=== PATIENT | male | born 1940 | race Asian ===

== ENCOUNTER 2018-03-13 01:14 | Inpatient (IN) | payer BC, OTHER ==
[2018-03-13 01:45] VITALS: BMI 30.9
--- NOTE | 2018-03-13 01:50 | PDOC ---
Attending Attestation - HPI HPI: 03/13/18 02:04 The patient is a 77 year old male with past medical history of HTN, diabetes, gallstones and hyperlipidemia presents to the emergency department with abd pain and chest pain. The patient reports earlier today he and his family broke the fast, after eating the patient experienced an episode of nonbloody nonbilious vomiting, states he vomited all the food he ate, followed by the manifestation of the chest pain. Denies any SOB or wheezing. Denies numbness, tingling, weakness or loss of sensation. Denies any diarrhea or constipation. Denies any dysuria, hematuria, frequency or urgency to urinate. Allergies: NKDA Social history: Patient denies Surgical history: Patient denies PCP: None reported - Medical Decision Making 03/13/18 02:04 Documentation prepared by Mahnaz Rousseau, acting as medical liaison for Marcos Humphries DO <Mahnaz Rousseau - Last Filed: 03/13/18 02:04> - Resident Resident Name: Samir Islas - ED Attending Attestation I have performed the following: I have examined & evaluated the patient, The case was reviewed & discussed with the resident, I agree w/resident's findings & plan, Exceptions are as noted - Physicial Exam PE: 03/13/18 04:13 Physical Exam General Appearance: Yes: Appropriately Dressed. No: Apparent Distress, Intoxicated HEENT: positive: EOMI, AKIRA, Normal ENT Inspection, Normal Voice, TMs Normal, Pharynx Normal. negative: Pale Conjunctivae, Photophobia, Scleral Icterus (R), Scleral Icterus (L) Neck: positive: Trachea midline, Normal Thyroid, Supple. negative: Tender, Rigid, Carotid bruit, Stridor, Lymphadenopathy (R), Lymphadenopathy (L), Thyromegaly Respiratory/Chest: positive: Lungs Clear, Normal Breath Sounds. negative: Chest Tender, Respiratory Distress, Accessory Muscle Use, Labored Respiration, RES, Crackles, Rales, Rhonchi, Stridor, Wheezing, Dullness Cardiovascular: positive: Regular Rhythm, Regular Rate, S1, S2. negative: Edema , JVD, Murmur, Bradycardia, Tachycardia Vascular Pulses: Dorsalis-Pedis (R): 2+, Doralis-Pedis (L): 2+ Gastrointestinal/Abdominal: positive: Normal Bowel Sounds, Flat, Soft. RUQ tenderness negative: Organomegaly, Pulsatile Mass, Increased Bowel Sounds, Decreased BS, Distended, Guarding, Rebound, Hernia, Hepatomegaly, Spleenomegaly Lymphatic: negative: Adenopathy, Tenderness Musculoskeletal: positive: Normal Inspection. negative: CVA Tenderness, Decreased Range of Motion Extremity: positive: Normal Capillary Refill, Normal Inspection, Normal Range of Motion, Pelvis Stable. negative: Tender, Pedal Edema, Swelling, Erythema Integumentary: positive: Normal Color, Dry, Warm. negative: Cyanotic, Erythema , Jaundice, Rash Neurologic: positive: ladies' locker room attendant II-XII NML intact, Fully Oriented, Alert, Normal Mood/ Affect, Motor Strength 5/5. negative: EOM Palsy, Facial Droop, Sensory Deficit - Medical Decision Making 03/13/18 19:31 Pt admitted to ICU. <Marcos Humphries - Last Filed: 03/13/18 19:31>
[2018-03-13] MEDS ORDERED: HEMOQUE TEST 1 EACH EACH ONE (02:03)
[2018-03-13 02:23] LABS: BASO % 0.2 % (0-2.0); EOS % 0.2 % (0-4.5); HEMATOCRIT 44.1 % (35.4-49); HEMOGLOBIN 14.6 GM/dL (11.7-16.9); LYMPH % 5.9 % (8-40); MCH 29.1 pg (25.7-33.7); MEAN CELL VOLUME 88.2 fl (80-96); MONO % 1.8 % (3.8-10.2); NEUT % 91.9 % (42.8-82.8); RDW 13.8 % (11.9-15.9); WHITE BLOOD COUNT 13.2 K/mm3 (4.0-10.0)
--- NOTE | 2018-03-13 02:46 | PDOC ---
History of Present Illness - General Chief Complaint: Tremors Stated Complaint: DIFFICULTY BREATHING,VOMITING Time Seen by Provider: 03/13/18 01:40 History Source: Patient Exam Limitations: No Limitations - History of Present Illness Initial Comments: 03/13/18 02:43 The patient is a 77M with a PMH of HTN, HLD, and DM who presents to the ER with complaints of chest pain and abdominal pain. The patient is with his son and , with his son providing most of the history. The son states that the patient "broke fast" and had a meal with the rest of the family. After he ate his meal, he felt nauseated and vomited NBNB. He went to lay down and then felt RUQ abdominal pain and CP. The CP is retrosternal, described as pressure, and does not radiate anywhere without any exacerbating or alleviating factors. The son states that the patient has had this abdominal pain in the past and was diagnosed with gallstones but deferred seeing a general surgeon because he felt better. The patient denies any fever, chills, but does complain of a tremor throughout his body. Past History - Past Medical History Allergies/Adverse Reactions: Allergies Allergy/AdvReac Type Severity Reaction Status Date / Time No Known Allergies Allergy Verified 03/13/18 01:33 Home Medications: Ambulatory Orders Atorvastatin Calcium [Lipitor] 20 mg PO DAILY 03/13/18 Hydrochlorothiazide [Hctz -] 12.5 mg PO DAILY 03/13/18 Losartan Potassium [Cozaar -] 25 mg PO DAILY 03/13/18 Olanzapine [Zyprexa -] 5 mg PO DAILY 03/13/18 Sitagliptin Phos/Metformin HCl [Janumet 50-1,000 mg Tablet] 1 each PO BID Tamsulosin HCl [Flomax] 0.4 mg PO DAILY 03/13/18 COPD: No Diabetes: Yes (2) Disorders: Yes (prostate) HTN: Yes Hypercholesterolemia: Yes - Suicide/Smoking/Psychosocial Hx Smoking History: Unknown if ever smoked Review of Systems - Review of Systems Able to Perform ROS?: Yes Comments:: 03/13/18 03:37 GENERAL/CONSTITUTIONAL: No fever or chills. No weakness. HEAD, EYES, EARS, NOSE AND THROAT: No change in vision. No ear pain or discharge. No sore throat. CARDIOVASCULAR: Positive for chest pressure. No chest pain, palpitations, or lightheadedness. RESPIRATORY: No cough, wheezing, shortness of breath, or hemoptysis. GASTROINTESTINAL: Positive for vomiting and abdominal pain. No nausea, diarrhea , or constipation. GENITOURINARY: No dysuria, frequency, hematuria, or change in urination. MUSCULOSKELETAL: No joint or muscle swelling or pain. No neck or back pain. SKIN: No rash or lesions. NEUROLOGIC: No headache, numbness, tingling, weakness, loss of consciousness, or change in strength/sensation. ENDOCRINE: No increased thirst. No abnormal weight change. HEMATOLOGIC/LYMPHATIC: No anemia, easy bleeding, or history of blood clots. ALLERGIC/IMMUNOLOGIC: No hives or skin allergy. Is the patient limited [place] proficient: No *Physical Exam - Vital Signs Last Vital Signs Temp Pulse Resp BP Pulse Ox 98 F 104 H 30 H 130/80 91 L 03/13/18 01:33 03/13/18 01:33 03/13/18 01:33 03/13/18 01:33 03/13/18 01:33 - Physical Exam Comments: 03/13/18 05:49 GENERAL: Well developed, well nourished. Awake and alert. No acute distress. HEENT: Normocephalic, atraumatic. Hearing grossly normal. Moist mucous membranes. PERRLA, EOMI. No conjunctival pallor. Sclera are non-icteric. NECK: Supple. Full ROM. CARDIOVASCULAR: Regular rate and rhythm. No murmurs, rubs, or gallops. PULMONARY: No evidence of respiratory distress. Lungs clear to auscultation bilaterally. No wheezing, rales or rhonchi. ABDOMINAL: Soft. Non-tender. Non-distended. No rebound or guarding. Negative mcmahon's sign. GENITOURINARY: No CVA tenderness bilaterally. MUSCULOSKELETAL: Normal range of motion at all joints. No bony deformities or tenderness. EXTREMITIES: No cyanosis. No clubbing. No edema. No calf tenderness or swelling. SKIN: Warm and dry. Normal capillary refill. No rashes. No jaundice. NEUROLOGICAL: Alert, awake, appropriate. Cranial nerves 2-12 intact. Normal speech. Gait is normal without ataxia. Heart Score/ECG Review #1 General ECG Interpretation: Sinus Rhythm, Normal Rate, Normal Intervals, No acute ischemic changes Compared to previous ECG there are: Previous ECG unavail 03/13/18 05:50 Sinus tach Artifact present from pt tremor No ABIMAEL or STD No evidence of acute ischemic changes Vent rate 104 NJ 152 QRS 78 QTc 452 ED Treatment Course - LABORATORY CBC & Chemistry Diagram: 03/13/18 02:14 03/13/18 02:14 - ADDITIONAL ORDERS Additional order review: Laboratory Results 03/13/18 02:10 POC Glucometer [id number] 03/13/18 03/13/18 02:14 02:10 RBC 5.00 MCV 88.2 MCHC 33.0 RDW 13.8 Neutrophils % 91.9 H Lymphocytes % 5.9 L Monocytes % 1.8 L Eosinophils % 0.2 Basophils % 0.2 POC Glucometer [id number] - RADIOLOGY Radiology Studies Ordered: Category Date Time Status CHEST X-RAY PORTABLE* [RAD] Stat Radiology 03/13/18 01:47 Taken Medical Decision Making - Medical Decision Making 03/13/18 05:50 The patient is a 77M with a PMH of HTN, HLD, and DM who presents to the ER after having a vomiting episode and complaining of abdominal pain and CP. Will r /o ACS with EKG and 2 troponins. CMP reveals elevated LFT's and alk phos likely indicating a choledocholithiasis. Will place pt for CTAP to r/o other acute process. Pain controlled with morphine. Given ceftriaxone for abx. WBC shows 13.0. Possible hepatobiliary pathology as discussed above. Pending CTAP reading. 03/13/18 05:53 CTAP Read: FINDINGS: The scan is quite limited due to patient motion. No obvious choledocholithiasis. However, because of motion the biliary tree is difficult to evaluate. MRCP would be most helpful for evaluation of choledocholithiasis. There is apparent thickening of the gallbladder storey but there is so much motion I cannot determine if it is a real finding or artifact. This can be evaluated with ultrasound. Hiatal hernia. No bowel obstruction. No bowel inflammation. Normal appendix. Fatty liver. Normal spleen. Normal pancreas. Normal adrenal glands. No urinary tract obstruction. Osseous structures are intact Pt is requesting to leave ED. I have instructed the patient to stay for abx and for imaging. Will reassess. 03/13/18 06:17 Pt is stating that his pain is better but remains tachycardic, tachypneic, and hypoxic (possible baseline d/t hx of COPD). Will admit for obs w/ GI consult. U/S RUQ order placed. 03/13/18 06:47 I have endorsed the pt to Dr. Queen for obs admission. *DC/Admit/Observation/Transfer Diagnosis at time of Disposition: Choledocholithiasis - Discharge Dispostion Condition at time of disposition: Stable Decision to Admit order: Yes - Referrals - Patient Instructions - Post Discharge Activity
[2018-03-13 02:47] LABS: ALBUMIN 3.8 g/dl (3.4-5.0); ALK PHOS 147 U/L (45-117); ANION GAP 13 (8-16); BILIRUBIN,TOTAL 1.3 mg/dL (0.2-1.0); BLOOD UREA NITROGEN 15 mg/dL (7-18); CALCIUM 9.6 mg/dL (8.5-10.1); CHLORIDE 104 mmol/L (98-107); CO2 24 mmol/L (21-32); CREATININE 1.3 mg/dL (0.7-1.3); GLUCOSE,RANDOM 156 mg/dL (74-106); SGPT/ALT 142 U/L (12-78); SODIUM 141 mmol/L (136-145); TOT PROT 8.1 g/dl (6.4-8.2)
[2018-03-13 02:52] LABS: LIPASE 301 U/L (73-393)
[2018-03-13 02:53] LABS: POTASSIUM 4.6 mmol/L (3.5-5.1); SGOT/AST 227 U/L (15-37)
[2018-03-13 03:02] LABS: ACETONE SERUM NEGATIVE (NEGATIVE)
[2018-03-13] MEDS ORDERED: CEFTRIAXONE 1,000 MG in DEXTROSE 5%-WATER - 50 ML IVPB ONE (03:15)
[2018-03-13] MEDS ORDERED: SODIUM CHLORIDE 0.9% 1000 ML INFUS.BAG IV ONE (03:22)
[2018-03-13] MEDS ORDERED: morphine CARPU-JECT 4 MG/1 ML DISP.SYRIN IVPUSH ONE (03:22)
[2018-03-13] MEDS ORDERED: morphine SULFATE 4 MG/ML VIAL ONE (03:47)
[2018-03-13] MEDS ORDERED: CEFTRIAXONE 1 GM/50 ML BAG ONE (03:48)
[2018-03-13 03:50] LABS: MEAN PLT VOLUME 8.7 fl (7.5-11.1); PLATELET COUNT 182 K/MM3 (134-434)
[2018-03-13 03:51] LABS: PLATELET ESTIMATE ADEQUATE
[2018-03-13 05:08] LABS: URINE APPEARANCE CLEAR; URINE BILIRUBIN NEGATIVE (<2.0 mg/dL); URINE BLOOD NEGATIVE (NEGATIVE); URINE GLUCOSE (UA) NEGATIVE (NEGATIVE); URINE KETONE NEGATIVE (NEGATIVE); URINE LEUK ESTERASE NEGATIVE (NEGATIVE); URINE NITRITE NEGATIVE (NEGATIVE); URINE PROTEIN NEGATIVE (NEGATIVE); URINE UROBILINOGEN 4.0 E.U/dl mg/dL (0.2-1.0)
[2018-03-13 05:15] LABS: URINE COLOR YELLOW
[2018-03-13] MEDS ORDERED: IBUPROFEN 800 MG/8 ML IJ IVPB ONE ×4 (07:19→23:00)
[2018-03-13] MEDS: SODIUM CHLORIDE 1,000 ML IV SCH ×3 (07:30→18:12)
[2018-03-13 08:16] LABS: HEMATOCRIT 39.4 % (35.4-49); HEMOGLOBIN 13.3 GM/dL (11.7-16.9); MCH 29.4 pg (25.7-33.7); MCHC 33.8 g/dl (32.0-35.9); MEAN CELL VOLUME 86.9 fl (80-96); MEAN PLT VOLUME 8.5 fl (7.5-11.1); PLATELET COUNT 141 K/MM3 (134-434); RBC 4.54 M/mm3 (4.00-5.60); RDW 14.1 % (11.9-15.9); WHITE BLOOD COUNT 12.4 K/mm3 (4.0-10.0)
--- NOTE | 2018-03-13 08:20 | HP ---
CHIEF COMPLAINT:Abdominal and chest pain PCP:edwin Javier HISTORY OF PRESENT ILLNESS: 77M PMH listed below who presents to the ER with a chief complaint of chest pain and abdominal pain. The patient is belarusian speaking and is from [facility]. Most of the history was taken from the son. The patient has been fasting for and last night after the sun went down he started to eat with his family. After eating he didnt feel well and he decided to lay down. After laying down he felt very nauseated and eventually had and episode of NB/NB vomiting. The vomitus contained undigested food. He then started to experience abdominal pain whcih started to radiate to his lower chest. He did describe a pressure like pain retrosternally as well.The chest pain is currently gone but there weren't any exacerbating or alleviating factors. It did not radiate to his arm or jaw. Per the son the patient has had gallstones for a long time and he has had this abdominal pain in the past. He did not a general surgeon because he felt better. The patient initially denies any fevers or chills but during the interview he started getting very hot. He complains of chills. Patient is tachypenic during the interview and his son states that sometimes he breathes very fast to catch his breath. Per the he has been having exertional dyspnea that is gradually getting worse. The patient and his family are unsure why he is on plavix. He denies ever having a stress test or cardiac catheterization. The son thinks the patient may have had a "small heart attack" in the past. He denies history of stroke or TIA. Per son and patient has had this episode twice before and one of the times the patient developed jaundice. ER course was notable for: (1)Labs CT scan CXR (2)Pain control ABx Antiemetics (3)IVF Recent Travel:Denies. Patient is from [facility] PAST MEDICAL HISTORY:HTN, HLD, DM, Depression, BPH, possible CAD with IA in the past PAST SURGICAL HISTORY:Denies Social History: Smoking:Quit 1 year ago. Smoked for over 20 years Alcohol:Denies Drugs: Denies Family History: Gallstones Allergies No Known Allergies Allergy (Verified 03/13/18 01:33) HOME MEDICATIONS: Home Medications Medication Instructions Recorded Atorvastatin Calcium [Lipitor] 20 mg PO DAILY 03/13/18 Hydrochlorothiazide [Hctz -] 12.5 mg PO DAILY 03/13/18 Losartan Potassium [Cozaar -] 25 mg PO DAILY 03/13/18 Olanzapine [Zyprexa -] 5 mg PO DAILY 03/13/18 Sitagliptin Phos/Metformin HCl 1 each PO BID 03/13/18 [Janumet 50-1,000 mg Tablet] Tamsulosin HCl [Flomax] 0.4 mg PO DAILY 03/13/18 REVIEW OF SYSTEMS CONSTITUTIONAL: Absent: generalized weakness, malaise, loss of appetite, weight change Present : fever, chills, diaphoresis HEENT: Absent: rhinorrhea, nasal congestion, throat pain, throat swelling, difficulty swallowing, mouth swelling, ear pain, eye pain, visual changes CARDIOVASCULAR: Absent:syncope, palpitations, irregular heart rate, lightheadedness, peripheral edema Present: chest pain RESPIRATORY: Absent: cough, orthopnea, wheezing, stridor, hemoptysis Present:shortness of breath, dyspnea with exertion GASTROINTESTINAL: Absent: abdominal distension, diarrhea, constipation, melena, hematochezia Present: abdominal pain, nausea, vomiting GENITOURINARY: Absent: dysuria, frequency, urgency, hesitancy, hematuria, flank pain, genital pain MUSCULOSKELETAL: Absent: myalgia, arthralgia, joint swelling, back pain, neck pain SKIN: Absent: rash, itching, pallor HEMATOLOGIC/IMMUNOLOGIC: Absent: easy bleeding, easy bruising, lymphadenopathy, frequent infections ENDOCRINE: Absent: unexplained weight gain, unexplained weight loss, heat intolerance, cold intolerance NEUROLOGIC: Absent: headache, focal weakness or paresthesias, dizziness, unsteady gait, seizure, mental status changes, bladder or bowel incontinence PSYCHIATRIC: Absent: anxiety, depression, suicidal or homicidal ideation, hallucinations. PHYSICAL EXAMINATION Vital Signs - 24 hr 03/13/18 03/13/18 03/13/18 01:33 06:54 07:24 Temperature 98 F 102.3 F H Pulse Rate 104 H Pulse Rate [ 117 H Left Radial] Respiratory 30 H 18 Rate Blood Pressure 130/80 Blood Pressure 119/67 [Left Arm] O2 Sat by Pulse 91 L 97 94 L Oximetry (%) GENERAL: Awake, alert, and fully oriented. Looks tired. Diaphoretic HEAD: Normal with no signs of trauma. EYES: Pupils equal, round and reactive to light, extraocular movements intact, sclera anicteric EARS, NOSE, THROAT:Dry mucous membranes. NECK: Supple LUNGS:Fine and faint crackles with wheezing at left base Otherwise clear on right HEART: Regular rate and rhythm, normal S1 and S2 without murmur, rub or gallop. ABDOMEN: Soft, mild tenderness to palpation diffusely. RUQ moderate amount of tenderness with a weak mcmahon's sign MUSCULOSKELETAL: Normal range of motion at all joints. No CVA tenderness. UPPER EXTREMITIES: 2+ pulses, warm, well-perfused. No peripheral edema. LOWER EXTREMITIES: 1+ DP pulse on right 2+DP pulse on left, warm, well- perfused. No calf tenderness. No peripheral edema. NEUROLOGICAL: Cranial nerves II-XII intact. Normal speech. gait not observed PSYCHIATRIC: Cooperative. Good eye contact. Appropriate mood and affect. SKIN: Hot and clammy Laboratory Results - last 24 hr 03/13/18 03/13/18 03/13/18 02:10 02:14 02:14 WBC 13.2 H RBC 5.00 Hgb 14.6 Hct 44.1 MCV 88.2 MCH 29.1 MCHC 33.0 RDW 13.8 Plt Count 182 MPV 8.7 Neutrophils % 91.9 H Lymphocytes % 5.9 L Monocytes % 1.8 L Eosinophils % 0.2 Basophils % 0.2 Platelet Estimate Adequate Platelet Comment No clumping noted Sodium Potassium Chloride Carbon Dioxide Anion Gap BUN Creatinine Creat Clearance w eGFR POC Glucometer [id number] Random Glucose Calcium Total Bilirubin AST ALT Alkaline Phosphatase Creatine Kinase 73 Troponin I < 0.02 B-Natriuretic Peptide Total Protein Albumin Lipase Urine Color Urine Appearance Urine pH Ur Specific [place] Urine Protein Urine Glucose (UA) Urine Ketones Urine Blood Urine Nitrite Urine Bilirubin Urine Urobilinogen Ur Leukocyte Esterase Acetone, Qual Negative 03/13/18 03/13/18 03/13/18 02:14 02:14 05:01 WBC RBC Hgb Hct MCV MCH MCHC RDW Plt Count MPV Neutrophils % Lymphocytes % Monocytes % Eosinophils % Basophils % Platelet Estimate Platelet Comment Sodium 141 Potassium 4.6 Chloride 104 Carbon Dioxide 24 Anion Gap 13 BUN 15 Creatinine 1.3 Creat Clearance w eGFR 53.39 POC Glucometer Random Glucose 156 H Calcium 9.6 Total Bilirubin 1.3 H AST 227 H ALT 142 H Alkaline Phosphatase 147 H Creatine Kinase Troponin I B-Natriuretic Peptide 81.37 Total Protein 8.1 Albumin 3.8 Lipase 301 Urine Color Yellow Urine Appearance Clear Urine pH 5.0 Ur Specific [place] 1.019 Urine Protein Negative Urine Glucose (UA) Negative Urine Ketones Negative Urine Blood Negative Urine Nitrite Negative Urine Bilirubin Negative Urine Urobilinogen 4.0 e.u/dl Ur Leukocyte Esterase Negative Acetone, Qual EKG: NSR with a lot of motion artifact will need to repeat CTAP: unable to make a definitive diagnosis due to a lot of motion CXR: large heart no active acute process appreciated ASSESSMENT/PLAN: 77M with multiple medical problems including gallstones presents to the ED with nausea, vomiting, and RUQ abdominal pain for one day, found to have elevated LFTs. Patient is now in severe sepsis with concern for ascending cholangitis. Severe sepsis secondary to ascending cholangitis/Choledocholithiasis/ Cholelithiasis: patient is rapidly progressing. When I initially saw the patient he was not febrile. He is now febrile to 102.4. The fever with his tachycardia elevated WBC count, and tachypnea with elevated LFTs and lactic acidosis puts him in severe sepsis. Admit patient to inpatient services Strict I/Os Bell if needed ECHO for cardiac function and to help guide resuscitation Ceftriaxone/Flagyl GI consult for evaluation and ERCP will order MRCP f/u ultrasound CTAP was not very conclusive due to a lot of motion artifact IVF for resuscitation NPO Replete electrolytes Trend LFTs Pain control Antiemetics Antipyretics Hyperbilirubinemia/Jaundice/transaminitis: See above No tylenol Atypical chest pain:likely radiation from abdomen but given unknown cardiac history anf patient being on plavix will repeat troponin and if negative will stop trending. Repeat EKG due to motion artifact Lactic acidosis:secondary to tissue hypoperfusion will give NS fluid boluses and repeat in 2 hours DM: Stop Janumet Fingersticks for BGM q6h while NPO ISS q6h HTN: Hold antihypertensives for now as there is a concern for an impending shock state. on home patient is on HCTZ 12.5mg daily and Cozaar 25mg po daily Possible history of CAD: Patient and his family are unsure about his cardiac history or why the patient is on plavix. Per son patient was on all his meds from [facility] and when his father came to the [facility] his doctor just continued everything. They state theat he never had a stress test or cardiac catheterization but they are not completely sure. Will need for follow up with PCP Hold for now pending possible ERCP/surgical intervention HLD: Hold lipitor 20mg po HS due to elevated LFTs BPH: continue flomax Depression: continue Zyprexa FEN: Bolus NS and then 100ml/hr hypophosphatemia and hypomagnesemia: will replete with IV electrolytes NPO PPx: SCDs/HSQ Protonix PT consult as patient is deconditioning Case discussed with Attending Dr. Leon Visit type - Emergency Visit Emergency Visit: Yes ED Registration Date: 03/13/18 Care time: The patient presented to the Emergency Department on the above date and was hospitalized for further evaluation of their emergent condition. - New Patient This patient is new to me today: Yes Date on this admission: 03/13/18 - Critical Care Critical Care patient: No Hospitalist Screening - Colonoscopy Questionnaire Colonoscopy Questionnaire: Colonoscopy Questionnaire - Patient: 50 - 75 years old and never had a screening colonoscopy: Yes History of colon or rectal polyps, or CA: No History of IBD, Crohn's disease or UC: No History of abdominal radiation therapy as a child: No - Relative: 1 with colon or rectal CA, or polyps at age 60 or younger: No Colon or rectal CA diagnosed at age 45 or younger: No Multiple relatives with colon or rectal CA: No (Patient is 77 and refused colonoscopy in the past) - Outcome: Screening Result: Positive Screen
[2018-03-13] MEDS ORDERED: ONDANSETRON 4 MG/2 ML VIAL IVPB PRN ×2 (08:38→17:28)
[2018-03-13 08:48] LABS: ALBUMIN 3.3 g/dl (3.4-5.0); ALK PHOS 180 U/L (45-117); BILIRUBIN,TOTAL 2.1 mg/dL (0.2-1.0); SGPT/ALT 319 U/L (12-78); TOT PROT 7.6 g/dl (6.4-8.2)
[2018-03-13 08:51] LABS: MAGNESIUM 1.2 mg/dL (1.8-2.4)
[2018-03-13 08:52] LABS: BILIRUBIN,DIRECT 0.8 mg/dL (0.0-0.2); SGOT/AST 413 U/L (15-37)
[2018-03-13] MEDS ORDERED: MAGNESIUM SULF 50% (8.12 MEQ/2 ML-1 GM VIAL) IVPB SCH (09:00)
[2018-03-13] MEDS ORDERED: SODIUM CHLORIDE 1,000 ML IV STA ×2 (09:28→14:41)
[2018-03-13] MEDS ORDERED: morphine SULFATE 4 MG/ML VIAL IVPUSH PRN ×2 (09:45→17:28)
[2018-03-13] MEDS ORDERED: SODIUM PHOSPHATE - 30 MM in SODIUM CHLORIDE 500 ML IVPB ONE (10:00)
[2018-03-13] MEDS ORDERED: OLANZapine 5 MG TABLET PO SCH (10:00)
[2018-03-13] MEDS: HEPARIN NA (PORCINE) 5,000 UNITS/ML 1ML VIAL SQ SCH ×3 (10:28→23:01)
[2018-03-13] MEDS: MAGNESIUM SULFATE IN WATER 2 GM/50 ML IVPB IVPB SCH ×2 (11:26→11:37)
[2018-03-13] MEDS: INSULIN SLIDING SCALE (NOVOLOG) 1 VIAL SQ SCH ×3 (11:29→18:11)
--- NOTE | 2018-03-13 11:56 | EKG ---
Test Reason : Blood Pressure : / mmHG Vent. Rate : 104 BPM Atrial Rate : 104 BPM P-R Int : 152 ms QRS Dur : 078 ms QT Int : 344 ms P-R-T Axes : 053 019 019 degrees QTc Int : 452 ms POOR DATA QUALITY, INTERPRETATION MAY BE ADVERSELY AFFECTED SINUS TACHYCARDIA NONSPECIFIC ST ABNORMALITY ABNORMAL ECG NO PREVIOUS ECGS AVAILABLE Confirmed by YESSI GOODWIN MD ([id number]) on 03/13/2018 11:56:10 AM Referred By: Confirmed By:YESSI GOODWIN MD
--- NOTE | 2018-03-13 12:10 | CON.GI ---
Consult Consult Specialty:: GI Reason for Consultation:: abdominal pain, abnormal liver chemistries - History of Present Illness History of Present Illness: chart reviewed. Events noted. As per initial intake: The patient is a 77M with a PMH of HTN, HLD, and DM who presents to the ER with complaints of chest pain and abdominal pain. The patient is with his son and , with his son providing most of the history. The son states that the patient "broke fast" and had a meal with the rest of the family. After he ate his meal, he felt nauseated and vomited NBNB. He went to lay down and then felt RUQ abdominal pain and CP. The CP is retrosternal, described as pressure, and does not radiate anywhere without any exacerbating or alleviating factors. The son states that the patient has had this abdominal pain in the past and was diagnosed with gallstones but deferred seeing a general surgeon because he felt better. The patient denies any fever, chills, but does complain of a tremor throughout his body. The patient was interviewed with help of Romanian-speaking attending physician. Not in distress. Pain-free. Reports history as above. the pain is epigastric, nonradiating, associated with nausea and vomiting, completely resolved at this time, similar to the pain he experienced in the past at the time of gallstone diagnosis. Denies dysphagia, odynophagia, melena, hematochezia, hematemesis. T-max 102. Tachycardic, normotensive. Blood work revealed cholestasis with hepatitis, mild leukocytosis, elevated lactic acid. Nontender abdomen on exam. Negative Dominguez's. Anicteric sclera. No jaundice. Awake, alert. Takes Janumet, Plavix, atorvastatin, Olanzapine. - History Source History Provided By: Patient, Medical Record, Caregiver Limitations to Obtaining History: Language Barrier - Smoking History Smoking history: Unknown if ever smoked Home Medications - Allergies Allergies/Adverse Reactions: Allergies Allergy/AdvReac Type Severity Reaction Status Date / Time No Known Allergies Allergy Verified 03/13/18 01:33 - Home Medications Home Medications: Ambulatory Orders Atorvastatin Calcium [Lipitor] 20 mg PO DAILY 03/13/18 Clopidogrel Bisulfate [Plavix] 75 mg PO DAILY 03/13/18 Hydrochlorothiazide [Hctz -] 12.5 mg PO DAILY 03/13/18 Losartan Potassium [Cozaar -] 25 mg PO DAILY 03/13/18 Olanzapine [Zyprexa -] 5 mg PO DAILY 03/13/18 Sitagliptin Phos/Metformin HCl [Janumet 50-1,000 mg Tablet] 1 each PO BID Tamsulosin HCl [Flomax] 0.4 mg PO DAILY 03/13/18 Family Disease History - Family Disease History Family History: Unremarkable Review of Systems Findings/Remarks: As per H&P and HPI Physical Exam-GI Vital Signs: Vital Signs Temperature 98.1 F 03/13/18 08:24 Pulse Rate 105 H 03/13/18 08:24 Respiratory Rate 18 03/13/18 08:24 Blood Pressure 118/76 03/13/18 08:24 O2 Sat by Pulse Oximetry (%) 96 03/13/18 08:24 Constitutional: Yes: Well Nourished, No Distress Eyes: No: Sclera Icterus HENT: Yes: Atraumatic, Normocephalic Neck: Yes: Supple, Trachea Midline Cardiovascular: Yes: Regular Rate and Rhythm, Tachycardia Respiratory: Yes: Regular Gastrointestinal Inspection: No: Distention ...Palpate: Yes: Soft. No: Firm/Rigid, Guarding, Tenderness Neurological: Yes: Alert Labs: CBC, BMP 03/13/18 07:50 03/13/18 02:14 Laboratory Last Values WBC 12.4 K/mm3 (4.0-10.0) H 03/13/18 07:50 RBC 4.54 M/mm3 (4.00-5.60) 03/13/18 07:50 Hgb 13.3 GM/dL (11.7-16.9) 03/13/18 07:50 Hct 39.4 % (35.4-49) 03/13/18 07:50 MCV 86.9 fl (80-96) 03/13/18 07:50 MCH 29.4 pg (25.7-33.7) 03/13/18 07:50 MCHC 33.8 g/dl (32.0-35.9) 03/13/18 07:50 RDW 14.1 % (11.9-15.9) 03/13/18 07:50 Plt Count 141 K/MM3 (134-434) D 03/13/18 07:50 MPV 8.5 fl (7.5-11.1) 03/13/18 07:50 Neutrophils % 91.9 % (42.8-82.8) H 03/13/18 02:14 Lymphocytes % 5.9 % (8-40) L 03/13/18 02:14 Monocytes % 1.8 % (3.8-10.2) L 03/13/18 02:14 Eosinophils % 0.2 % (0-4.5) 03/13/18 02:14 Basophils % 0.2 % (0-2.0) 03/13/18 02:14 Platelet Estimate Adequate 03/13/18 02:14 Platelet Comment No clumping noted 03/13/18 02:14 Sodium 141 mmol/L (136-145) 03/13/18 02:14 Potassium 4.6 mmol/L (3.5-5.1) 03/13/18 02:14 Chloride 104 mmol/L (98-107) 03/13/18 02:14 Carbon Dioxide 24 mmol/L (21-32) 03/13/18 02:14 Anion Gap 13 (8-16) 03/13/18 02:14 BUN 15 mg/dL (7-18) 03/13/18 02:14 Creatinine 1.3 mg/dL (0.7-1.3) 03/13/18 02:14 Creat Clearance w eGFR 53.39 (>60) 03/13/18 02:14 POC Glucometer 155.87708 UNITS (80-120) 03/13/18 02:10 Random Glucose 156 mg/dL (74-106) H 03/13/18 02:14 Lactic Acid 2.8 mmol/L (0.0-2.0) H* 03/13/18 09:50 Calcium 9.6 mg/dL (8.5-10.1) 03/13/18 02:14 Phosphorus 2.0 mg/dL (2.5-4.9) L 03/13/18 07:50 Magnesium 1.2 mg/dL (1.8-2.4) L 03/13/18 07:50 Total Bilirubin 2.1 mg/dL (0.2-1.0) H D 03/13/18 07:50 Direct Bilirubin 0.8 mg/dL (0.0-0.2) H 03/13/18 07:50 AST 413 U/L (15-37) H D 03/13/18 07:50 ALT 319 U/L (12-78) H D 03/13/18 07:50 Alkaline Phosphatase 180 U/L (45-117) H D 03/13/18 07:50 Creatine Kinase 64 IU/L (39-308) 03/13/18 07:50 Troponin I < 0.02 ng/ml (0.00-0.05) 03/13/18 07:50 B-Natriuretic Peptide 81.37 pg/ml (5-450) 03/13/18 02:14 Total Protein 7.6 g/dl (6.4-8.2) 03/13/18 07:50 Albumin 3.3 g/dl (3.4-5.0) L 03/13/18 07:50 Lipase 301 U/L (73-393) 03/13/18 02:14 Urine Color Yellow 03/13/18 05:01 Urine Appearance Clear 03/13/18 05:01 Urine pH 5.0 (5.0-8.0) 03/13/18 05:01 Ur Specific [place] 1.019 (1.001-1.035) 03/13/18 05:01 Urine Protein Negative (NEGATIVE) 03/13/18 05:01 Urine Glucose (UA) Negative (NEGATIVE) 03/13/18 05:01 Urine Ketones Negative (NEGATIVE) 03/13/18 05:01 Urine Blood Negative (NEGATIVE) 03/13/18 05:01 Urine Nitrite Negative (NEGATIVE) 03/13/18 05:01 Urine Bilirubin Negative (<2.0 mg/dL) 03/13/18 05:01 Urine Urobilinogen 4.0 e.u/dl mg/dL (0.2-1.0) 03/13/18 05:01 Ur Leukocyte Esterase Negative (NEGATIVE) 03/13/18 05:01 Acetone, Qual Negative (NEGATIVE) 03/13/18 02:14 Imaging - Results Cat Scan: Report Reviewed ( without. Limited study.) Problem List - Problems (1) Cholestasis Code(s): K83.1 - OBSTRUCTION OF BILE DUCT (2) Hepatitis Code(s): K75.9 - INFLAMMATORY LIVER DISEASE, UNSPECIFIED (3) Abdominal pain Code(s): R10.9 - UNSPECIFIED ABDOMINAL PAIN Assessment/Plan A 77-year-old male, diabetic, with abdominal pain, cholestasis, hepatitis, leukocytosis, fever and history of gallstones. Rule out cholangitis, choledocholithiasis, cholecystitis. Rule out underlying viral etiology and peptic ulcer disease. Agree with antibiotics with biliary coverage, MRCP, IV fluids and bowel rest. Antiemetics when necessary. Hold Plavix. Close monitoring for worsening condition. Consider ICU monitoring. ERCP, EGD as per findings on imaging.
[2018-03-13] MEDS ORDERED: PANTOPRAZOLE 40 MG TABLET (FP) PO SCH (12:30)
--- NOTE | 2018-03-13 15:38 | PN ---
Teaching Attending Note Name of Resident: Pop Zavaleta ATTENDING PHYSICIAN STATEMENT I saw and evaluated the patient. I reviewed the resident's note and discussed the case with the resident. I agree with the resident's findings and plan as documented. SUBJECTIVE: Patient is a 77 year old man with past history of HTN, DM, Hyperlipidemia, BPH, ?CAD, and depression who presents with chief complaint of right upper quadrant abdominal pain, vomiting and chest discomfort that started within the past 24 hours. Patient had a similar episode of RUQ pain about 1 year ago and was told he had gall bladder disease. In the ER he was noted to be febrile, tachycardic, normotensive and ill looking with labs remarkable for leukocytosis, lactic acidosis, hypomagnesemia and hypophosphatemia. OBJECTIVE: Last Vital Signs Temp Pulse Resp BP Pulse Ox 97.9 F 73 20 107/61 96 03/13/18 14:00 03/13/18 14:00 03/13/18 14:00 03/13/18 14:00 03/13/18 08:24 Patient is ill-looking but not in acute pain after he got analgesics. HEENT: Tinge of jaundice. PERRLA Neck: Supple, no adenopathy Chest: Clear to auscultation and percussion Abdomen: Obese, soft and nontender. No gaurding or rebound. No HSM Ext: No peripheral edema Neuro: Alert. No gross focal deficits. Oriented to person and place. Current Medications Generic Name Dose Route Start Last Admin Trade Name Freq PRN Reason Stop Dose Admin Heparin Sodium (Porcine) 5,000 unit 03/13/18 09:00 03/13/18 13:51 Heparin - SQ 5,000 unit TID TITO Administration Sodium Chloride 1,000 mls @ 100 mls/hr 03/13/18 07:30 03/13/18 11:48 Normal Saline - IV 100 mls/hr ASDIR TITO Administration Ceftriaxone Sodium 1 gm/ 50 mls @ 100 mls/hr 03/13/18 22:00 Dextrose IVPB DAILY@2200 TITO Protocol Metronidazole 500 mg in 100 mls @ 100 mls/hr 03/13/18 10:00 03/13/18 11:45 Flagyl 500mg Premixed Ivpb - IVPB 100 mls/hr Q8H-IV TITO Administration Sodium Phosphate 30 mm/ Sodium 510 mls @ 62.5 mls/hr 03/13/18 10:00 03/13/18 12:30 Chloride IVPB 03/13/18 18:09 62.5 mls/hr ONCE ONE Administration Sodium Chloride 1,000 mls @ 1,000 mls/hr 03/13/18 14:41 03/13/18 15:10 Normal Saline - IV 03/13/18 15:40 1,000 mls/hr ASDIR STA Administration Insulin Aspart 1 vial 03/13/18 08:30 03/13/18 13:28 Novolog Vial Sliding Scale - SQ Not Given Q6HPO [facility] Protocol Morphine Sulfate 2 mg 03/13/18 09:45 Morphine Sulfate IVPUSH Q4H PRN PAIN LEVEL 4 - 6 Olanzapine 5 mg 03/13/18 10:00 03/13/18 11:38 Zyprexa - PO 5 mg DAILY TITO Administration Ondansetron HCl 4 mg 03/13/18 08:38 Zofran Injection IVPB Q6H PRN NAUSEA Pantoprazole Sodium 40 mg 03/13/18 12:30 03/13/18 13:51 Protonix - PO 40 mg DAILY TITO Administration Tamsulosin HCl 0.4 mg 03/14/18 10:00 Flomax - PO DAILY@0830 [facility] Home Medications Medication Instructions Recorded Atorvastatin Calcium [Lipitor] 20 mg PO DAILY 03/13/18 Clopidogrel Bisulfate [Plavix] 75 mg PO DAILY 03/13/18 Hydrochlorothiazide [Hctz -] 12.5 mg PO DAILY 03/13/18 Losartan Potassium [Cozaar -] 25 mg PO DAILY 03/13/18 Olanzapine [Zyprexa -] 5 mg PO DAILY 03/13/18 Sitagliptin Phos/Metformin HCl 1 each PO BID 03/13/18 [Janumet 50-1,000 mg Tablet] Tamsulosin HCl [Flomax] 0.4 mg PO DAILY 03/13/18 Abnormal Lab Results 03/13/18 03/13/18 03/13/18 02:14 02:14 07:50 WBC 13.2 H 12.4 H Neutrophils % 91.9 H Lymphocytes % 5.9 L Monocytes % 1.8 L Random Glucose 156 H Lactic Acid Phosphorus Magnesium Total Bilirubin 1.3 H Direct Bilirubin AST 227 H ALT 142 H Alkaline Phosphatase 147 H Albumin 03/13/18 03/13/18 03/13/18 07:50 07:50 07:50 WBC Neutrophils % Lymphocytes % Monocytes % Random Glucose Lactic Acid 4.3 H* Phosphorus 2.0 L Magnesium 1.2 L Total Bilirubin 2.1 H D Direct Bilirubin 0.8 H AST 413 H D ALT 319 H D Alkaline Phosphatase 180 H D Albumin 3.3 L 03/13/18 09:50 WBC Neutrophils % Lymphocytes % Monocytes % Random Glucose Lactic Acid 2.8 H* Phosphorus Magnesium Total Bilirubin Direct Bilirubin AST ALT Alkaline Phosphatase Albumin ASSESSMENT AND PLAN: 77 year old man with multiple comorbidities presenting with finding consistent with severe sepsis, most likely due to cholecystitis or cholangitis. Patient is being admitted as an inpatient because he will require fluid resuscitation and IV antibiotics and expected lengt of stay is more than two midnights. 1. Severe sepsis: Patient received bolus IV normal saline and is on IV Rocephin and IV Flagyl. Lactic acid level is trending down and he is being continued on IV NS at 100cc/hour. Will monitor lactic acid level. CT Scan as well sonogram showed dilated gall bladder, but no dilatation of common bile duct. Patient is being seen by the surgeon and the quality compliance consultant and an an MRCP is being done. 2. DM: Patient is now on sliding scale insulin coverage. 3. Nutrition: Currently NPO pending complete evaluation to determine if he needs urgent cholecystectomy. 4. Hypertension: Antihypertensive medications are currently on hold in view of the low normal BP and risk of hypotension. 5. Hyperlipidemia: Will continue his usual antilipid regimen. 6. ?CAD: Patient is on Plavix for unclear reasons. Will hold for now in case he needs surgey. 7. BPH: Will hold his flomax for now and continue to monitor voiding. 8. Low phosphate and low Magnesium: Etiology is unclear, but unlikely to be solely due to poor intake. Will continue to replace PO and IV 9. Depression: Will continue zyprexa 5 mg po q HS. 10.DVT prophylasix: Will use Heparin 5000u SQ tid and SCDs 11. Advance directives: Will clarify with family if patient is full code.
[2018-03-13 16:00] LABS: ANION GAP 14 (8-16); BLOOD UREA NITROGEN 16 mg/dL (7-18); CALCIUM 8.9 mg/dL (8.5-10.1); CHLORIDE 104 mmol/L (98-107); CO2 22 mmol/L (21-32); CREATININE 1.4 mg/dL (0.7-1.3); GLUCOSE,RANDOM 152 mg/dL (74-106); SODIUM 140 mmol/L (136-145)
[2018-03-13 16:01] LABS: POTASSIUM 4.9 mmol/L (3.5-5.1)
[2018-03-13 16:38] LABS: BASO % 0.2 % (0-2.0); EOS % 0.3 % (0-4.5); HEMATOCRIT 37.8 % (35.4-49); HEMOGLOBIN 12.5 GM/dL (11.7-16.9); LYMPH % 6.6 % (8-40); MCH 29.1 pg (25.7-33.7); MEAN CELL VOLUME 88.2 fl (80-96); MEAN PLT VOLUME 8.4 fl (7.5-11.1); MONO % 4.1 % (3.8-10.2); NEUT % 88.8 % (42.8-82.8); PLATELET COUNT 134 K/MM3 (134-434); RBC 4.29 M/mm3 (4.00-5.60); RDW 14.1 % (11.9-15.9); WHITE BLOOD COUNT 9.2 K/mm3 (4.0-10.0)
--- NOTE | 2018-03-13 16:49 | CONSULT ---
Consult Consult Specialty:: Surgery - History of Present Illness Chief Complaint: Abdominal pain History of Present Illness: 77 male presents for abdominal pain Found to be slightly jaundice with fever and elevated LFTs - History Source History Provided By: Patient, Family Member - Alcohol/Substance Use Hx Alcohol Use: No - Smoking History Smoking history: Unknown if ever smoked Have you smoked in the past 12 months: No Home Medications - Allergies Allergies/Adverse Reactions: Allergies Allergy/AdvReac Type Severity Reaction Status Date / Time No Known Allergies Allergy Verified 03/13/18 01:33 - Home Medications Home Medications: Ambulatory Orders Atorvastatin Calcium [Lipitor] 20 mg PO DAILY 03/13/18 Clopidogrel Bisulfate [Plavix] 75 mg PO DAILY 03/13/18 Hydrochlorothiazide [Hctz -] 12.5 mg PO DAILY 03/13/18 Losartan Potassium [Cozaar -] 25 mg PO DAILY 03/13/18 Olanzapine [Zyprexa -] 5 mg PO DAILY 03/13/18 Sitagliptin Phos/Metformin HCl [Janumet 50-1,000 mg Tablet] 1 each PO BID Tamsulosin HCl [Flomax] 0.4 mg PO DAILY 03/13/18 Family Disease History - Family Disease History Family History: Denies Review of Systems - Review of Systems Constitutional: reports: Fever, Lethargy Neck: reports: No Symptoms Cardiovascular: reports: No Symptoms Respiratory: denies: Cough Gastrointestinal: reports: Abdominal Pain Neurological: denies: Change in LOC Pain Intensity: 4 Physical Exam Vital Signs: Vital Signs Temperature 98.6 F 03/13/18 16:30 Pulse Rate 68 03/13/18 16:30 Respiratory Rate 16 03/13/18 16:30 Blood Pressure 114/65 03/13/18 16:30 O2 Sat by Pulse Oximetry (%) 98 03/13/18 16:26 Constitutional: Yes: Calm, Obese Cardiovascular: Yes: WNL Respiratory: Yes: Regular Gastrointestinal: Yes: Soft, Abdomen, Obese, Tenderness, Epigastrium (Mild). No : Tenderness, Rebound Neurological: Yes: Alert, Oriented Labs: CBC,CMP WBC 12.4 K/mm3 (4.0-10.0) H 03/13/18 07:50 RBC 4.54 M/mm3 (4.00-5.60) 03/13/18 07:50 Hgb 13.3 GM/dL (11.7-16.9) 03/13/18 07:50 Hct 39.4 % (35.4-49) 03/13/18 07:50 MCV 86.9 fl (80-96) 03/13/18 07:50 MCH 29.4 pg (25.7-33.7) 03/13/18 07:50 MCHC 33.8 g/dl (32.0-35.9) 03/13/18 07:50 RDW 14.1 % (11.9-15.9) 03/13/18 07:50 Plt Count 141 K/MM3 (134-434) D 03/13/18 07:50 MPV 8.5 fl (7.5-11.1) 03/13/18 07:50 Neutrophils % 91.9 % (42.8-82.8) H 03/13/18 02:14 Lymphocytes % 5.9 % (8-40) L 03/13/18 02:14 Monocytes % 1.8 % (3.8-10.2) L 03/13/18 02:14 Eosinophils % 0.2 % (0-4.5) 03/13/18 02:14 Basophils % 0.2 % (0-2.0) 03/13/18 02:14 Platelet Estimate Adequate 03/13/18 02:14 Platelet Comment No clumping noted 03/13/18 02:14 Sodium 140 mmol/L (136-145) 03/13/18 07:50 Potassium 4.9 mmol/L (3.5-5.1) 03/13/18 07:50 Chloride 104 mmol/L (98-107) 03/13/18 07:50 Carbon Dioxide 22 mmol/L (21-32) 03/13/18 07:50 Anion Gap 14 (8-16) 03/13/18 07:50 BUN 16 mg/dL (7-18) 03/13/18 07:50 Creatinine 1.4 mg/dL (0.7-1.3) H 03/13/18 07:50 Creat Clearance w eGFR 53.39 (>60) 03/13/18 02:14 POC Glucometer 131 UNITS (80-120) 03/13/18 11:56 Random Glucose 152 mg/dL (74-106) H 03/13/18 07:50 Lactic Acid 2.8 mmol/L (0.0-2.0) H* 03/13/18 09:50 Calcium 8.9 mg/dL (8.5-10.1) 03/13/18 07:50 Phosphorus 2.0 mg/dL (2.5-4.9) L 03/13/18 07:50 Magnesium 1.2 mg/dL (1.8-2.4) L 03/13/18 07:50 Total Bilirubin 2.1 mg/dL (0.2-1.0) H D 03/13/18 07:50 Direct Bilirubin 0.8 mg/dL (0.0-0.2) H 03/13/18 07:50 AST 413 U/L (15-37) H D 03/13/18 07:50 ALT 319 U/L (12-78) H D 03/13/18 07:50 Alkaline Phosphatase 180 U/L (45-117) H D 03/13/18 07:50 Creatine Kinase 64 IU/L (39-308) 03/13/18 07:50 Troponin I < 0.02 ng/ml (0.00-0.05) 03/13/18 07:50 B-Natriuretic Peptide 81.37 pg/ml (5-450) 03/13/18 02:14 Total Protein 7.6 g/dl (6.4-8.2) 03/13/18 07:50 Albumin 3.3 g/dl (3.4-5.0) L 03/13/18 07:50 Lipase 301 U/L (73-393) 03/13/18 02:14 Imaging - Results Cat Scan: Report Reviewed Problem List - Problems (1) Abdominal pain Code(s): R10.9 - UNSPECIFIED ABDOMINAL PAIN (2) Choledocholithiasis Code(s): K80.50 - CALCULUS OF BILE DUCT W/O CHOLANGITIS OR CHOLECYST W/O OBST Assessment/Plan 77 male with elevated LFTs and abdominal pain U/S- small gallstones, sludge, no pericholecyststic fluid, no ductal dilation MRCP GI consult May require ERCP Hepatitis panel
--- NOTE | 2018-03-13 17:06 | PN ---
Teaching Attending Note ATTENDING PHYSICIAN STATEMENT I saw and evaluated the patient. I reviewed the resident's note and discussed the case with the resident. I agree with the resident's findings and plan as documented. SUBJECTIVE: 77yo male from [facility] with h/o HTN, hyperlipidemia, DM, CAD, depression who was admitted with chest and abdominal pain. Also with nausea and vomiting. No hematemesis. No shortness of breath, cough or wheezing. Found to have elevated LFTs, RUQ ultrasound showing borderline thickening of gall bladder wall as well as small stones and posterior sludge. Evaluated by GI and surgery, scheduled for MRCP and then possible ERCP. OBJECTIVE: Last Vital Signs Temp Pulse Resp BP Pulse Ox 98.6 F 68 16 114/65 98 03/13/18 16:30 03/13/18 16:30 03/13/18 16:30 03/13/18 16:30 03/13/18 16:26 Intake & Output 03/10/18 03/11/18 03/12/18 03/13/18 23:59 23:59 23:59 23:59 Intake Total 2300 Output Total 700 Balance 1600 Weight 95 kg Gen: rigoring Heart: RRR Lung: decreased breath sounds at the bases Abd: soft, mild TTP deep Ext: no edema CBC, BMP 03/13/18 16:00 Hepatic Panel Total Bilirubin 2.1 mg/dL (0.2-1.0) H D 03/13/18 07:50 Direct Bilirubin 0.8 mg/dL (0.0-0.2) H 03/13/18 07:50 AST 413 U/L (15-37) H D 03/13/18 07:50 ALT 319 U/L (12-78) H D 03/13/18 07:50 Alkaline Phosphatase 180 U/L (45-117) H D 03/13/18 07:50 Albumin 3.3 g/dl (3.4-5.0) L 03/13/18 07:50 Active Medications Chlorhexidine Gluconate (Hibiclens For Decolonization -) 1 applic TP HS TITO Heparin Sodium (Porcine) (Heparin -) 5,000 unit SQ TID TITO Last Admin: 03/13/18 13:51 Dose: 5,000 unit Sodium Chloride (Normal Saline -) 1,000 mls @ 100 mls/hr IV ASDIR TITO Last Admin: 03/13/18 11:48 Dose: 100 mls/hr Ceftriaxone Sodium 1 gm/ (Dextrose) 50 mls @ 100 mls/hr IVPB DAILY@2200 [facility] PRN Reason: Protocol Metronidazole (Flagyl 500mg Premixed Ivpb -) 500 mg in 100 mls @ 100 mls/hr IVPB Q8H-IV [facility] Last Admin: 03/13/18 11:45 Dose: 100 mls/hr Sodium Phosphate 30 mm/ Sodium (Chloride) 510 mls @ 62.5 mls/hr IVPB ONCE ONE Stop: 03/13/18 18:09 Last Admin: 03/13/18 12:30 Dose: 62.5 mls/hr Insulin Aspart (Novolog Vial Sliding Scale -) 1 vial SQ Q6HPO [facility] PRN Reason: Protocol Last Admin: 03/13/18 13:28 Dose: Not Given Morphine Sulfate (Morphine Sulfate) 2 mg IVPUSH Q4H PRN PRN Reason: PAIN LEVEL 4 - 6 Mupirocin (Bactroban Ointment (For Decolonization) -) 1 applic NS BID [facility] Stop: 03/18/18 21:59 Olanzapine (Zyprexa -) 5 mg PO DAILY [facility] Last Admin: 03/13/18 11:38 Dose: 5 mg Ondansetron HCl (Zofran Injection) 4 mg IVPB Q6H PRN PRN Reason: NAUSEA Pantoprazole Sodium (Protonix -) 40 mg PO DAILY [facility] Last Admin: 03/13/18 13:51 Dose: 40 mg Tamsulosin HCl (Flomax -) 0.4 mg PO DAILY@0830 [facility] ASSESSMENT AND PLAN: r/o Acute Cholangitis vs Cholecystitis Sepsis Lactic Acidosis Acute Kidney Injury Elevated LFTs from above HTN Hyperlipidemia CAD - IV antibiotics - f/u cultures - IVF resuscitation - monitor urine output, creatinine - trend lactate - for MRCP - GI/surgery following - NPO - pain control - antiemetics - transfer to ICU for further monitoring critical care time spent in reviewing chart, evaluating patient and formulating plan 35 min
[2018-03-13 17:53] LABS: ALBUMIN 2.8 g/dl (3.4-5.0); ANION GAP 8 (8-16); BLOOD UREA NITROGEN 14 mg/dL (7-18); CALCIUM 7.8 mg/dL (8.5-10.1); CHLORIDE 110 mmol/L (98-107); CO2 28 mmol/L (21-32); CREATININE 1.2 mg/dL (0.7-1.3); GLUCOSE,RANDOM 105 mg/dL (74-106); POTASSIUM 4.2 mmol/L (3.5-5.1); SGPT/ALT 274 U/L (12-78); SODIUM 146 mmol/L (136-145)
[2018-03-13 18:04] LABS: ALK PHOS 155 U/L (45-117); BILIRUBIN,TOTAL 2.9 mg/dL (0.2-1.0); SGOT/AST 255 U/L (15-37); TOT PROT 6.3 g/dl (6.4-8.2)
--- NOTE | 2018-03-13 18:22 | PN ---
Physical Exam: SUBJECTIVE: Patient seen and examined at side in ICU 77 year old man with past history of HTN, DM, Hyperlipidemia, BPH, and depression who presents with chief complaint of right upper quadrant abdominal pain, vomiting and chest discomfort that started within the past 24 hours. Patient had a similar episode of RUQ pain about 1 year ago and was told he had gall bladder disease. In the ER he was noted to be febrile, tachycardic, normotensive and ill looking with labs remarkable for leukocytosis, lactic acidosis, hypomagnesemia and hypophosphatemia. OBJECTIVE: Vital Signs Period Temp Pulse Resp BP Sys/Bui Pulse Ox Last 24 Hr 97.9 F-102.3 F 68-117 16-30 107-130/61-80 91-98 GENERAL: The patient is awake, alert, and fully oriented, in no acute distress. HEAD: Normal with no signs of trauma. EYES: PERRL, extraocular movements intact, sclera anicteric, conjunctiva clear. No ptosis. ENT: Ears normal, nares patent, oropharynx clear without exudates, moist mucous membranes. NECK: Trachea midline, full range of motion, supple. LUNGS: Breath sounds equal, clear to auscultation bilaterally, no wheezes, no crackles, no accessory muscle use. HEART: Regular rate and rhythm, S1, S2 without murmur, rub or gallop. ABDOMEN: Soft, nontender, nondistended, normoactive bowel sounds, no guarding, no rebound, no hepatosplenomegaly, no masses. EXTREMITIES: 2+ pulses, warm, well-perfused, no edema. NEUROLOGICAL: Cranial nerves II through XII grossly intact. Normal speech, gait not observed. PSYCH: Normal mood, normal affect. SKIN: Warm, dry, normal turgor, no rashes or lesions noted Laboratory Results - last 24 hr 03/13/18 03/13/18 03/13/18 02:10 02:14 02:14 WBC 13.2 H RBC 5.00 Hgb 14.6 Hct 44.1 MCV 88.2 MCH 29.1 MCHC 33.0 RDW 13.8 Plt Count 182 MPV 8.7 Neutrophils % 91.9 H Lymphocytes % 5.9 L Monocytes % 1.8 L Eosinophils % 0.2 Basophils % 0.2 Platelet Estimate Adequate Platelet Comment No clumping noted Sodium Potassium Chloride Carbon Dioxide Anion Gap BUN Creatinine Creat Clearance w eGFR POC Glucometer [phone] Random Glucose Lactic Acid Calcium Phosphorus Magnesium Total Bilirubin Direct Bilirubin AST ALT Alkaline Phosphatase Creatine Kinase 73 Troponin I < 0.02 B-Natriuretic Peptide Total Protein Albumin Lipase Urine Color Urine Appearance Urine pH Ur Specific [place] Urine Protein Urine Glucose (UA) Urine Ketones Urine Blood Urine Nitrite Urine Bilirubin Urine Urobilinogen Ur Leukocyte Esterase Acetone, Qual Negative 03/13/18 03/13/18 03/13/18 02:14 02:14 05:01 WBC RBC Hgb Hct MCV MCH MCHC RDW Plt Count MPV Neutrophils % Lymphocytes % Monocytes % Eosinophils % Basophils % Platelet Estimate Platelet Comment Sodium 141 Potassium 4.6 Chloride 104 Carbon Dioxide 24 Anion Gap 13 BUN 15 Creatinine 1.3 Creat Clearance w eGFR 53.39 POC Glucometer Random Glucose 156 H Lactic Acid Calcium 9.6 Phosphorus Magnesium Total Bilirubin 1.3 H Direct Bilirubin AST 227 H ALT 142 H Alkaline Phosphatase 147 H Creatine Kinase Troponin I B-Natriuretic Peptide 81.37 Total Protein 8.1 Albumin 3.8 Lipase 301 Urine Color Yellow Urine Appearance Clear Urine pH 5.0 Ur Specific [place] 1.019 Urine Protein Negative Urine Glucose (UA) Negative Urine Ketones Negative Urine Blood Negative Urine Nitrite Negative Urine Bilirubin Negative Urine Urobilinogen 4.0 e.u/dl Ur Leukocyte Esterase Negative Acetone, Qual 03/13/18 03/13/18 03/13/18 07:50 07:50 07:50 WBC 12.4 H RBC 4.54 Hgb 13.3 Hct 39.4 MCV 86.9 MCH 29.4 MCHC 33.8 RDW 14.1 Plt Count 141 D MPV 8.5 Neutrophils % Lymphocytes % Monocytes % Eosinophils % Basophils % Platelet Estimate Platelet Comment Sodium 140 Potassium 4.9 Chloride 104 Carbon Dioxide 22 Anion Gap 14 BUN 16 Creatinine 1.4 H Creat Clearance w eGFR POC Glucometer Random Glucose 152 H Lactic Acid Calcium 8.9 Phosphorus 2.0 L Magnesium 1.2 L Total Bilirubin 2.1 H D Direct Bilirubin 0.8 H AST 413 H D ALT 319 H D Alkaline Phosphatase 180 H D Creatine Kinase 64 Troponin I < 0.02 B-Natriuretic Peptide Total Protein 7.6 Albumin 3.3 L Lipase Urine Color Urine Appearance Urine pH Ur Specific [place] Urine Protein Urine Glucose (UA) Urine Ketones Urine Blood Urine Nitrite Urine Bilirubin Urine Urobilinogen Ur Leukocyte Esterase Acetone, Qual 03/13/18 03/13/18 03/13/18 07:50 09:50 11:56 WBC RBC Hgb Hct MCV MCH MCHC RDW Plt Count MPV Neutrophils % Lymphocytes % Monocytes % Eosinophils % Basophils % Platelet Estimate Platelet Comment Sodium Potassium Chloride Carbon Dioxide Anion Gap BUN Creatinine Creat Clearance w eGFR POC Glucometer 131 Random Glucose Lactic Acid 4.3 H* 2.8 H* Calcium Phosphorus Magnesium Total Bilirubin Direct Bilirubin AST ALT Alkaline Phosphatase Creatine Kinase Troponin I B-Natriuretic Peptide Total Protein Albumin Lipase Urine Color Urine Appearance Urine pH Ur Specific [place] Urine Protein Urine Glucose (UA) Urine Ketones Urine Blood Urine Nitrite Urine Bilirubin Urine Urobilinogen Ur Leukocyte Esterase Acetone, Qual 03/13/18 03/13/18 03/13/18 16:00 16:00 16:00 WBC 9.2 RBC 4.29 Hgb 12.5 Hct 37.8 MCV 88.2 MCH 29.1 MCHC 33.0 RDW 14.1 Plt Count 134 MPV 8.4 Neutrophils % 88.8 H Lymphocytes % 6.6 L Monocytes % 4.1 D Eosinophils % 0.3 Basophils % 0.2 Platelet Estimate Platelet Comment Sodium 146 H Potassium 4.2 Chloride 110 H Carbon Dioxide 28 D Anion Gap 8 BUN 14 Creatinine 1.2 Creat Clearance w eGFR 58.56 POC Glucometer Random Glucose 105 D Lactic Acid 2.0 Calcium 7.8 L Phosphorus Magnesium Total Bilirubin 2.9 H D Direct Bilirubin AST 255 H D ALT 274 H Alkaline Phosphatase 155 H Creatine Kinase Troponin I B-Natriuretic Peptide Total Protein 6.3 L Albumin 2.8 L Lipase Urine Color Urine Appearance Urine pH Ur Specific [place] Urine Protein Urine Glucose (UA) Urine Ketones Urine Blood Urine Nitrite Urine Bilirubin Urine Urobilinogen Ur Leukocyte Esterase Acetone, Qual Active Medications Generic Name Dose Route Start Last Admin Trade Name Freq PRN Reason Stop Dose Admin Chlorhexidine Gluconate 1 applic 03/13/18 22:00 Hibiclens For Decolonization - TP HS TITO Heparin Sodium (Porcine) 5,000 unit 03/13/18 22:00 Heparin - SQ TID TITO Ceftriaxone Sodium 1 gm/ 50 mls @ 100 mls/hr 03/13/18 22:00 Dextrose IVPB DAILY@2200 [facility] Protocol Metronidazole 500 mg in 100 mls @ 100 mls/hr 03/13/18 18:00 03/13/18 18:18 Flagyl 500mg Premixed Ivpb - IVPB 100 mls/hr Q8H-IV TITO Administration Sodium Chloride 1,000 mls @ 100 mls/hr 03/13/18 17:28 03/13/18 18:12 Normal Saline - IV 100 mls/hr ASDIR TITO Administration Insulin Aspart 1 vial 03/13/18 18:00 03/13/18 18:11 Novolog Vial Sliding Scale - SQ Not Given Q6HPO [facility] Protocol Morphine Sulfate 2 mg 03/13/18 17:28 Morphine Sulfate IVPUSH Q4H PRN PAIN LEVEL 4 - 6 Mupirocin 1 applic 03/13/18 22:00 Bactroban Ointment (For Decolonization) - NS 03/18/18 21:59 BID [facility] Olanzapine 5 mg 03/14/18 10:00 Zyprexa - PO DAILY [facility] Ondansetron HCl 4 mg 03/13/18 17:28 Zofran Injection IVPB Q6H PRN NAUSEA Pantoprazole Sodium 40 mg 03/14/18 10:00 Protonix - PO DAILY [facility] Tamsulosin HCl 0.4 mg 03/14/18 08:30 Flomax - PO DAILY@0830 [facility] CBC, BMP 03/13/18 16:00 03/13/18 16:00 Small gallstones and possible small sludge layering posteriorly. Borderline thickening of the gallbladder wall without evidence of pericholecystic free fluid. Correlate clinically to determine further evaluation. Likely mild fatty infiltration of the liver. Please correlate with liver enzymes. _ ASSESSMENT/PLAN: 1. Severe sepsis: Patient received bolus IV normal saline and is on IV Rocephin and IV Flagyl. Lactic acid level is trending down and he is being continued on IV NS at 100cc/hour. Will monitor lactic acid level. CT Scan as well sonogram showed dilated gall bladder, but no dilatation of common bile duct. Patient is being seen by the surgeon and the scale expert and an an MRCP is being done. 2. DM: Patient is now on sliding scale insulin coverage. 3. Nutrition: Currently NPO pending complete evaluation to determine if he needs urgent cholecystectomy. 4. Hypertension: Antihypertensive medications are currently on hold in view of the low normal BP and risk of hypotension. 5. Hyperlipidemia: Will continue his usual antilipid regimen. 6. ?CAD: Patient is on Plavix for unclear reasons. Will hold for now in case he needs surgey. 7. BPH: Will hold his flomax for now and continue to monitor voiding. 8. Low phosphate and low Magnesium: Etiology is unclear, but unlikely to be solely due to poor intake. Will continue to replace PO and IV 9. Depression: Will continue zyprexa 5 mg po q HS. 10.DVT prophylasix: Will use Heparin 5000u SQ tid and SCDs 11. Advance directives: Will clarify with family if patient is full code.
--- NOTE | 2018-03-13 20:06 | CONSULT ---
Consultation: REQUESTING PROVIDER: CONSULT REQUEST: We have been asked to medically evaluate this patient for sever sepsis due to cholangitis Patient seen and examined at side in ICU 77 year old man with past history of HTN, DM, Hyperlipidemia, BPH, and depression who presents with chief complaint of right upper quadrant abdominal pain, vomiting and chest discomfort that started within the past 24 hours after having food with his family after fasting around 9 pm . pt son reports chills, vomiting [id number] , the abdominal pain is 8/10 ,local RUQ non radiating , not related to position or food . Patient had a similar episode of RUQ pain about 1 year ago and was told he had gall bladder disease. In the ER he was noted to be febrile, tachycardic, normotensive and ill looking with labs remarkable for leukocytosis, lactic acidosis, hypomagnesemia and hypophosphatemia. pt son reports one episode of blood in the urine today morning HISTORY OF PRESENT ILLNESS: REVIEW OF SYSTEMS: CONSTITUTIONAL: Absent: fever, chills, diaphoresis, generalized weakness, malaise, loss of appetite, weight change HEENT: Absent: rhinorrhea, nasal congestion, throat pain, throat swelling, difficulty swallowing, mouth swelling, ear pain, eye pain, visual changes CARDIOVASCULAR: Absent: chest pain, syncope, palpitations, irregular heart rate, lightheadedness , peripheral edema RESPIRATORY: Absent: cough, shortness of breath, dyspnea with exertion, orthopnea, wheezing, stridor, hemoptysis GASTROINTESTINAL: Absent: abdominal pain yesterday, abdominal distension, nausea, vomiting yesterday , diarrhea, constipation, melena, hematochezia GENITOURINARY: Absent: dysuria, frequency, urgency, hesitancy, hematuria one episode today morning , flank pain, genital pain MUSCULOSKELETAL: Absent: myalgia, arthralgia, joint swelling, back pain, neck pain SKIN: Absent: rash, itching, pallor HEMATOLOGIC/IMMUNOLOGIC: Absent: easy bleeding, easy bruising, lymphadenopathy, frequent infections ENDOCRINE: Absent: unexplained weight gain, unexplained weight loss, heat intolerance, cold intolerance NEUROLOGIC: Absent: headache, focal weakness or paresthesias, dizziness, unsteady gait, seizure, mental status changes, bladder or bowel incontinence PSYCHIATRIC: Absent: anxiety, depression, suicidal or homicidal ideation, hallucinations. PHYSICAL EXAMINATION Vital Signs - 24 hr 03/13/18 03/13/18 03/13/18 01:33 06:54 07:24 Temperature 98 F 102.3 F H Pulse Rate 104 H Pulse Rate [ 117 H Left Radial] Respiratory 30 H 18 Rate Blood Pressure 130/80 Blood Pressure 119/67 [Left Arm] O2 Sat by Pulse 91 L 97 94 L Oximetry (%) 03/13/18 03/13/18 03/13/18 08:24 14:00 16:00 Temperature 98.1 F 97.9 F 99.6 F Pulse Rate 73 74 Pulse Rate [ 105 H Left Radial] Respiratory 18 20 16 Rate Blood Pressure 107/61 110/52 Blood Pressure 118/76 [Left Arm] O2 Sat by Pulse 96 Oximetry (%) 03/13/18 03/13/18 03/13/18 16:26 16:30 18:00 Temperature 98.6 F 101.6 F H Pulse Rate 68 80 Pulse Rate [ Left Radial] Respiratory 20 16 16 Rate Blood Pressure 114/65 114/67 Blood Pressure [Left Arm] O2 Sat by Pulse 98 95 Oximetry (%) GENERAL: Awake, alert, and fully oriented, in no acute distress. HEAD: Normal with no signs of trauma. EYES: Pupils equal, round and reactive to light, extraocular movements intact, sclera anicteric, EARS, NOSE, THROAT: Ears normal, nares patent, oropharynx clear without exudates. Moist mucous membranes. NECK: Normal range of motion, supple LUNGS: Breath sounds equal, clear to auscultation bilaterally. No wheezes, and no crackles. No accessory muscle use. HEART: Regular rate and rhythm, normal S1 and S2 without murmur, rub or gallop. ABDOMEN: Soft, nontender, not distended, normoactive bowel sounds, no guarding, no rebound, Dominguez Negative UPPER EXTREMITIES: 2+ pulses, warm, well-perfused. No cyanosis. No clubbing. Cap refill <2 seconds. No peripheral edema. LOWER EXTREMITIES: 2+ pulses, warm, well-perfused. No calf tenderness. No peripheral edema. NEUROLOGICAL: Cranial nerves II-XII intact. Normal speech. PSYCHIATRIC: Cooperative. Good eye contact. Appropriate mood and affect. SKIN: Warm, dry, normal turgor, Laboratory Results - last 24 hr 03/13/18 03/13/18 03/13/18 02:10 02:14 02:14 WBC 13.2 H RBC 5.00 Hgb 14.6 Hct 44.1 MCV 88.2 MCH 29.1 MCHC 33.0 RDW 13.8 Plt Count 182 MPV 8.7 Neutrophils % 91.9 H Lymphocytes % 5.9 L Monocytes % 1.8 L Eosinophils % 0.2 Basophils % 0.2 Platelet Estimate Adequate Platelet Comment No clumping noted Sodium Potassium Chloride Carbon Dioxide Anion Gap BUN Creatinine Creat Clearance w eGFR POC Glucometer [phone] Random Glucose Lactic Acid Calcium Phosphorus Magnesium Total Bilirubin Direct Bilirubin AST ALT Alkaline Phosphatase Creatine Kinase 73 Troponin I < 0.02 B-Natriuretic Peptide Total Protein Albumin Lipase Urine Color Urine Appearance Urine pH Ur Specific [place] Urine Protein Urine Glucose (UA) Urine Ketones Urine Blood Urine Nitrite Urine Bilirubin Urine Urobilinogen Ur Leukocyte Esterase Acetone, Qual Negative 03/13/18 03/13/18 03/13/18 02:14 02:14 05:01 WBC RBC Hgb Hct MCV MCH MCHC RDW Plt Count MPV Neutrophils % Lymphocytes % Monocytes % Eosinophils % Basophils % Platelet Estimate Platelet Comment Sodium 141 Potassium 4.6 Chloride 104 Carbon Dioxide 24 Anion Gap 13 BUN 15 Creatinine 1.3 Creat Clearance w eGFR 53.39 POC Glucometer Random Glucose 156 H Lactic Acid Calcium 9.6 Phosphorus Magnesium Total Bilirubin 1.3 H Direct Bilirubin AST 227 H ALT 142 H Alkaline Phosphatase 147 H Creatine Kinase Troponin I B-Natriuretic Peptide 81.37 Total Protein 8.1 Albumin 3.8 Lipase 301 Urine Color Yellow Urine Appearance Clear Urine pH 5.0 Ur Specific [place] 1.019 Urine Protein Negative Urine Glucose (UA) Negative Urine Ketones Negative Urine Blood Negative Urine Nitrite Negative Urine Bilirubin Negative Urine Urobilinogen 4.0 e.u/dl Ur Leukocyte Esterase Negative Acetone, Qual 03/13/18 03/13/18 03/13/18 07:50 07:50 07:50 WBC 12.4 H RBC 4.54 Hgb 13.3 Hct 39.4 MCV 86.9 MCH 29.4 MCHC 33.8 RDW 14.1 Plt Count 141 D MPV 8.5 Neutrophils % Lymphocytes % Monocytes % Eosinophils % Basophils % Platelet Estimate Platelet Comment Sodium 140 Potassium 4.9 Chloride 104 Carbon Dioxide 22 Anion Gap 14 BUN 16 Creatinine 1.4 H Creat Clearance w eGFR POC Glucometer Random Glucose 152 H Lactic Acid Calcium 8.9 Phosphorus 2.0 L Magnesium 1.2 L Total Bilirubin 2.1 H D Direct Bilirubin 0.8 H AST 413 H D ALT 319 H D Alkaline Phosphatase 180 H D Creatine Kinase 64 Troponin I < 0.02 B-Natriuretic Peptide Total Protein 7.6 Albumin 3.3 L Lipase Urine Color Urine Appearance Urine pH Ur Specific [place] Urine Protein Urine Glucose (UA) Urine Ketones Urine Blood Urine Nitrite Urine Bilirubin Urine Urobilinogen Ur Leukocyte Esterase Acetone, Qual 03/13/18 03/13/18 03/13/18 07:50 09:50 11:56 WBC RBC Hgb Hct MCV MCH MCHC RDW Plt Count MPV Neutrophils % Lymphocytes % Monocytes % Eosinophils % Basophils % Platelet Estimate Platelet Comment Sodium Potassium Chloride Carbon Dioxide Anion Gap BUN Creatinine Creat Clearance w eGFR POC Glucometer 131 Random Glucose Lactic Acid 4.3 H* 2.8 H* Calcium Phosphorus Magnesium Total Bilirubin Direct Bilirubin AST ALT Alkaline Phosphatase Creatine Kinase Troponin I B-Natriuretic Peptide Total Protein Albumin Lipase Urine Color Urine Appearance Urine pH Ur Specific [place] Urine Protein Urine Glucose (UA) Urine Ketones Urine Blood Urine Nitrite Urine Bilirubin Urine Urobilinogen Ur Leukocyte Esterase Acetone, Qual 03/13/18 03/13/18 03/13/18 16:00 16:00 16:00 WBC 9.2 RBC 4.29 Hgb 12.5 Hct 37.8 MCV 88.2 MCH 29.1 MCHC 33.0 RDW 14.1 Plt Count 134 MPV 8.4 Neutrophils % 88.8 H Lymphocytes % 6.6 L Monocytes % 4.1 D Eosinophils % 0.3 Basophils % 0.2 Platelet Estimate Platelet Comment Sodium 146 H Potassium 4.2 Chloride 110 H Carbon Dioxide 28 D Anion Gap 8 BUN 14 Creatinine 1.2 Creat Clearance w eGFR 58.56 POC Glucometer Random Glucose 105 D Lactic Acid 2.0 Calcium 7.8 L Phosphorus Magnesium Total Bilirubin 2.9 H D Direct Bilirubin AST 255 H D ALT 274 H Alkaline Phosphatase 155 H Creatine Kinase Troponin I B-Natriuretic Peptide Total Protein 6.3 L Albumin 2.8 L Lipase Urine Color Urine Appearance Urine pH Ur Specific [place] Urine Protein Urine Glucose (UA) Urine Ketones Urine Blood Urine Nitrite Urine Bilirubin Urine Urobilinogen Ur Leukocyte Esterase Acetone, Qual Active Medications Generic Name Dose Route Start Last Admin Trade Name Freq PRN Reason Stop Dose Admin Chlorhexidine Gluconate 1 applic 03/13/18 22:00 Hibiclens For Decolonization - TP HS TITO Heparin Sodium (Porcine) 5,000 unit 03/13/18 22:00 Heparin - SQ TID [facility] Ceftriaxone Sodium 1 gm/ 50 mls @ 100 mls/hr 03/13/18 22:00 Dextrose IVPB DAILY@2200 [facility] Protocol Metronidazole 500 mg in 100 mls @ 100 mls/hr 03/13/18 18:00 03/13/18 18:18 Flagyl 500mg Premixed Ivpb - IVPB 100 mls/hr Q8H-IV TITO Administration Sodium Chloride 1,000 mls @ 100 mls/hr 03/13/18 17:28 03/13/18 18:12 Normal Saline - IV 100 mls/hr ASDIR [facility] Administration Insulin Aspart 1 vial 03/13/18 18:00 03/13/18 18:11 Novolog Vial Sliding Scale - SQ Not Given Q6HPO [facility] Protocol Morphine Sulfate 2 mg 03/13/18 17:28 Morphine Sulfate IVPUSH Q4H PRN PAIN LEVEL 4 - 6 Mupirocin 1 applic 03/13/18 22:00 Bactroban Ointment (For Decolonization) - NS 03/18/18 21:59 BID [facility] Olanzapine 5 mg 03/14/18 10:00 Zyprexa - PO DAILY [facility] Ondansetron HCl 4 mg 03/13/18 17:28 Zofran Injection IVPB Q6H PRN NAUSEA Pantoprazole Sodium 40 mg 03/14/18 10:00 Protonix - PO DAILY [facility] Tamsulosin HCl 0.4 mg 03/14/18 08:30 Flomax - PO DAILY@0830 [facility] CBC, BMP 03/13/18 16:00 03/13/18 16:00 MRCP: 03/13/2018 liver : mild hepatic steatosis, Bile ducts: no evidence of intrahepatic biliary dilation , miold dilated CBD measure 8.5 cm with central small hypointense lesion measuring up to 3 mm concerning for choledocholithisis Gall bladder : cholelithisis with pericholecystic edema , or gall bladder wall thickening concerning for acute cholecytitis , , recommend HIDA scan pancreas, speen, adrenals and kidney WNL. ASSESSMENT/PLAN: # ID /GI Sever sepsis 2/2 cholecytitis vs cholangitis * pt presented with RUQ abdominal pain N/V x 1 day * Abdomen US with dilated common bile duct and gallbladder wall thickening suggesting cholecystitis * MRCP with dialtaed CBD 8.5 and 3 mm stone , spoke with Dr Flores over the phone recommend to keep him NPO for possible ERCP tomorrow AM * repeat cbc , cmp , Mg, P, LA * continue IV fluids NS 100 CC/hr (IV bolus in ED ) * Continue IV Abx ceftriaxone 1 gm IVPB daily , metronidazole 500 mg Q 8hr * GI on board Dr Flores possible ERCP tomorrow * Ibuprofen 600 Q 6hr as needed for fever * Zofran for nausea * Morphin 2 mg ivpb Q 4hr for pain * F/u Blood cx and urine cx * f/u hep panel , REJI * I&O HTN * hold BP meds for now I term of low BP due to sepsis * continue IV fluids : * Monitor BP DM * BGM * ISS * NPO for now Metabolic #Low P low Mg due to unknow reasons * relinish as needed * repeat p, Mg in AM #possible CAD * unclear history * continue to hold AC plavix for now for possible procedure tomorrow BPH * hold home meds flomax * monitor urine out put Depression * continue home meds Zyprexa 5 mg po daily HS FEN/PROPH * F: NS @100 CC /hr * E: monitor , replenished as needed * N:npo for now * DVT: hep Sq TID , SCDS both legs * GI : protonix 40 mg po daily Dispo: * Admit to icu for monitoring * full code spoken with the patient and his son and the * We will continue to follow the patient. Thank you for this consultative opportunity. Visit type - Emergency Visit Emergency Visit: Yes ED Registration Date: 03/13/18 Care time: The patient presented to the Emergency Department on the above date and was hospitalized for further evaluation of their emergent condition. - New Patient This patient is new to me today: No - Critical Care Critical Care patient: Yes Total Critical Care Time (in minutes): 45 Critical Care Statement: The care of this patient involved high complexity decision making to prevent further life threatening deterioration of the patient 's condition and/or to evaluate & treat vital organ system(s) failure or risk of failure.
[2018-03-13] MEDS ORDERED: CEFTRIAXONE 1 GM in DEXTROSE 5%-WATER - 50 ML IVPB SCH (22:00)
[2018-03-13] MEDS ORDERED: cefTRIAXone SODIUM 1 GM VIAL ONE (22:56)
[2018-03-13] MEDS ORDERED: DEXTROSE 5%-WATER - 50 ML IVPB ONE (22:56)
[2018-03-13] MEDS: CEFTRIAXONE 1 GM in DEXTROSE 5%-WATER - 50 ML IVPB SCH (23:02)
[2018-03-13] MEDS: MUPIROCIN 2% TOPICAL OINTMENT FOR DECOLONIZATION NS SCH (23:07)
[2018-03-13] MEDS: CHLORHEXIDINE GLUCONATE 4% CLEANSER FOR DECOLONIZATION TP SCH (23:07)
[2018-03-14] MEDS: INSULIN SLIDING SCALE (NOVOLOG) 1 VIAL SQ SCH ×4 (00:49→17:35)
[2018-03-14] MEDS ORDERED: PROPOFOL 1,000,000 MCG/100 ML VIAL ONE (01:29)
--- NOTE | 2018-03-14 05:37 | PN ---
Progress Note (short form) - Note Progress Note: Called Dr. Flores and discussed findings of prelim read of MRCP. Pt to remain NPO and ERCP to be done in the morning.
[2018-03-14] MEDS: SODIUM CHLORIDE 1,000 ML IV SCH (05:46)
[2018-03-14] MEDS: HEPARIN NA (PORCINE) 5,000 UNITS/ML 1ML VIAL SQ SCH (05:48)
[2018-03-14 06:36] LABS: HEMATOCRIT 37.3 % (35.4-49); HEMOGLOBIN 12.5 GM/dL (11.7-16.9); MCH 29.7 pg (25.7-33.7); MCHC 33.4 g/dl (32.0-35.9); MEAN CELL VOLUME 88.8 fl (80-96); MEAN PLT VOLUME 8.4 fl (7.5-11.1); PLATELET COUNT 106 K/MM3 (134-434); RDW 14.5 % (11.9-15.9); WHITE BLOOD COUNT 6.4 K/mm3 (4.0-10.0)
[2018-03-14 07:10] LABS: ANION GAP 5 (8-16); BLOOD UREA NITROGEN 11 mg/dL (7-18); CALCIUM 7.5 mg/dL (8.5-10.1); CHLORIDE 110 mmol/L (98-107); CO2 29 mmol/L (21-32); CREATININE 1.2 mg/dL (0.7-1.3); GLUCOSE,RANDOM 95 mg/dL (74-106); PHOSPHOROUS 2.8 mg/dL (2.5-4.9); SODIUM 144 mmol/L (136-145)
[2018-03-14 07:11] LABS: ALBUMIN 2.8 g/dl (3.4-5.0)
[2018-03-14 07:13] LABS: BILIRUBIN,DIRECT 2.4 mg/dL (0.0-0.2); BILIRUBIN,TOTAL 3.7 mg/dL (0.2-1.0); TOT PROT 6.4 g/dl (6.4-8.2)
[2018-03-14] MEDS ORDERED: TAMSULOSIN HCL 0.4 MG CAP.ER.24H (FP) PO SCH (10:00)
[2018-03-14] MEDS: MUPIROCIN 2% TOPICAL OINTMENT FOR DECOLONIZATION NS SCH ×2 (10:26→21:24)
[2018-03-14] MEDS: TAMSULOSIN HCL 0.4 MG CAP.ER.24H (FP) PO SCH (10:32)
[2018-03-14] MEDS: OLANZapine 5 MG TABLET PO SCH (10:33)
[2018-03-14] MEDS: PANTOPRAZOLE 40 MG TABLET (FP) PO SCH (10:33)
[2018-03-14 12:48] LABS: INR 1.28 (0.82-1.09); PROTHROMBIN TIME (PATIENT) 14.5 SEC (9.7-13.0)
--- NOTE | 2018-03-14 12:51 | PN ---
Teaching Attending Note Name of Resident: Yenny Patel ATTENDING PHYSICIAN STATEMENT I saw and evaluated the patient. I reviewed the resident's note and discussed the case with the resident. I agree with the resident's findings and plan as documented. SUBJECTIVE: Patient seen and examined in the ICU. Awake and alert. Denies abdominal pain, CP, or SOB. Awaiting official report of MRCP. For apparent ERCP today. Intake & Output 03/11/18 03/12/18 03/13/18 03/14/18 23:59 23:59 23:59 23:59 Intake Total 2900 900 Output Total 1100 300 Balance 1800 600 Weight 209 lb 7.026 oz 210 lb 9.6 oz Last Vital Signs Temp Pulse Resp BP Pulse Ox 99.2 F 67 20 104/64 98 03/14/18 10:00 03/14/18 12:00 03/14/18 12:00 03/14/18 12:00 03/14/18 08:00 Active Medications Chlorhexidine Gluconate (Hibiclens For Decolonization -) 1 applic TP HS [facility] Last Admin: 03/13/18 23:07 Dose: 1 applic Ceftriaxone Sodium 1 gm/ (Dextrose) 50 mls @ 100 mls/hr IVPB DAILY@2200 [facility] PRN Reason: Protocol Last Admin: 03/13/18 23:02 Dose: 100 mls/hr Metronidazole (Flagyl 500mg Premixed Ivpb -) 500 mg in 100 mls @ 100 mls/hr IVPB Q8H-IV [facility] Last Admin: 03/14/18 09:19 Dose: 100 mls/hr Sodium Chloride (Normal Saline -) 1,000 mls @ 100 mls/hr IV ASDIR [facility] Last Admin: 03/14/18 05:46 Dose: 100 mls/hr Insulin Aspart (Novolog Vial Sliding Scale -) 1 vial SQ Q6HPO [facility] PRN Reason: Protocol Last Admin: 03/14/18 11:12 Dose: Not Given Morphine Sulfate (Morphine Sulfate) 2 mg IVPUSH Q4H PRN PRN Reason: PAIN LEVEL 4 - 6 Mupirocin (Bactroban Ointment (For Decolonization) -) 1 applic NS BID [facility] Stop: 03/18/18 21:59 Last Admin: 03/14/18 10:26 Dose: 1 applic Olanzapine (Zyprexa -) 5 mg PO DAILY [facility] Last Admin: 03/14/18 10:33 Dose: 5 mg Ondansetron HCl (Zofran Injection) 4 mg IVPB Q6H PRN PRN Reason: NAUSEA Pantoprazole Sodium (Protonix -) 40 mg PO DAILY [facility] Last Admin: 03/14/18 10:33 Dose: 40 mg Tamsulosin HCl (Flomax -) 0.4 mg PO DAILY@0830 [facility] Last Admin: 03/14/18 10:32 Dose: 0.4 mg Gen: Awake and alert, NAD Heart: RRR Lung: decreased breath sounds at the bases Abd: soft, minimal discomfort in the RUQ, (+) BS Ext: no edema Laboratory Results - last 24 hr 03/13/18 03/13/18 03/13/18 07:50 16:00 16:00 WBC 9.2 RBC 4.29 Hgb 12.5 Hct 37.8 MCV 88.2 MCH 29.1 MCHC 33.0 RDW 14.1 Plt Count 134 MPV 8.4 Neutrophils % 88.8 H Lymphocytes % 6.6 L Monocytes % 4.1 D Eosinophils % 0.3 Basophils % 0.2 Sodium 140 146 H Potassium 4.9 4.2 Chloride 104 110 H Carbon Dioxide 22 28 D Anion Gap 14 8 BUN 16 14 Creatinine 1.4 H 1.2 Creat Clearance w eGFR 58.56 Random Glucose 152 H 105 D Lactic Acid Calcium 8.9 7.8 L Phosphorus Magnesium Total Bilirubin 2.1 H D 2.9 H D Direct Bilirubin 0.8 H AST 413 H D 255 H D ALT 319 H D 274 H Alkaline Phosphatase 180 H D 155 H Total Protein 7.6 6.3 L Albumin 3.3 L 2.8 L 03/13/18 03/14/18 03/14/18 16:00 06:10 06:10 WBC 6.4 D RBC 4.20 Hgb 12.5 Hct 37.3 MCV 88.8 MCH 29.7 MCHC 33.4 RDW 14.5 Plt Count 106 L D MPV 8.4 Neutrophils % Lymphocytes % Monocytes % Eosinophils % Basophils % Sodium 144 Potassium 4.0 Chloride 110 H Carbon Dioxide 29 Anion Gap 5 L BUN 11 D Creatinine 1.2 Creat Clearance w eGFR Random Glucose 95 Lactic Acid 2.0 Calcium 7.5 L Phosphorus 2.8 D Magnesium 2.0 D Total Bilirubin Direct Bilirubin AST ALT Alkaline Phosphatase Total Protein Albumin 03/14/18 06:10 WBC RBC Hgb Hct MCV MCH MCHC RDW Plt Count MPV Neutrophils % Lymphocytes % Monocytes % Eosinophils % Basophils % Sodium Potassium Chloride Carbon Dioxide Anion Gap BUN Creatinine Creat Clearance w eGFR Random Glucose Lactic Acid Calcium Phosphorus Magnesium Total Bilirubin 3.7 H D Direct Bilirubin 2.4 H D AST 162 H D ALT 228 H Alkaline Phosphatase 141 H Total Protein 6.4 Albumin 2.8 L ASSESSMENT AND PLAN: R/O Acute Cholangitis vs Cholecystitis Sepsis Lactic Acidosis Acute Kidney Injury Elevated LFTs from above HTN Hyperlipidemia CAD - IV antibiotics - f/u cultures - LR for IVF resuscitation - monitor urine output, creatinine - for ERCP - NPO for now - pain control - antiemetics - ICU monitoring Dr Woods Critical care time spent in reviewing chart, evaluating patient and formulating plan 36 min
--- NOTE | 2018-03-14 13:14 | PN ---
Teaching Attending Note Name of Resident: Frank Diaz ATTENDING PHYSICIAN STATEMENT I saw and evaluated the patient. I reviewed the resident's note and discussed the case with the resident. I agree with the resident's findings and plan as documented. SUBJECTIVE: seen at 9:30 am . denied any pain or n/V or SOB. no events over night OBJECTIVE: NAD , MMM CV: RRR, no MRG Lungs: CTAB Ext: no edema Abd: soft, NT, ND , nl BS. ASSESSMENT AND PLAN: 77 y/o man with h/o HTN, HLp, depression, and DM who presented with abd pain, N /V , and was found to have severe sepsis due to ascending cholangitis with obstructing CBD stone 1- Severe sepsis 2/2 ascending cholangitis with obstructing CBD stone. Bili cont to increase. pt is clinically stable with no abd pain. - Cont ceftriaxone and flagyl - ERCP today - NPO - IVF - pain control if needed - BP imporved and lactic normalized - cont to hold statin . follow hep panel 2- h/o HTN: - cont to hold anihypertensives 3- DM : SSI q 6h while NPO 4- hold plavix: unclear why on it . possible CAD . No h/o stents per his PCP dispo : HLOC Critical Care Total Critical Care Time (in minutes): 40 Critical Care Statement: The care of this patient involved high complexity decision making to prevent further life threatening deterioration of the patient 's condition and/or to evaluate & treat vital organ system(s) failure or risk of failure.
--- NOTE | 2018-03-14 13:25 | PN ---
Physical Exam: SUBJECTIVE: Patient awake, c/o poor sleep. Denies any active RUQ pain. OBJECTIVE: Vital Signs Period Temp Pulse Resp BP Sys/Bui Pulse Ox Last 24 Hr 97.9 F-101.6 F 63-80 16-24 92-114/52-70 95-98 General: awake, alert, non-toxic appearing Abdomen: no TTP, (+) bowel sounds : no CVA tenderness B/L CV: S1/S2, RRR, no murmur, rub, gallop Respiratory: Lungs CLTA B/L Laboratory Results - last 24 hr 03/13/18 03/13/18 03/13/18 07:50 16:00 16:00 WBC 9.2 RBC 4.29 Hgb 12.5 Hct 37.8 MCV 88.2 MCH 29.1 MCHC 33.0 RDW 14.1 Plt Count 134 MPV 8.4 Neutrophils % 88.8 H Lymphocytes % 6.6 L Monocytes % 4.1 D Eosinophils % 0.3 Basophils % 0.2 PT with INR INR Sodium 140 146 H Potassium 4.9 4.2 Chloride 104 110 H Carbon Dioxide 22 28 D Anion Gap 14 8 BUN 16 14 Creatinine 1.4 H 1.2 Creat Clearance w eGFR 58.56 Random Glucose 152 H 105 D Lactic Acid Calcium 8.9 7.8 L Phosphorus Magnesium Total Bilirubin 2.1 H D 2.9 H D Direct Bilirubin 0.8 H AST 413 H D 255 H D ALT 319 H D 274 H Alkaline Phosphatase 180 H D 155 H Total Protein 7.6 6.3 L Albumin 3.3 L 2.8 L 03/13/18 03/14/18 03/14/18 16:00 06:10 06:10 WBC 6.4 D RBC 4.20 Hgb 12.5 Hct 37.3 MCV 88.8 MCH 29.7 MCHC 33.4 RDW 14.5 Plt Count 106 L D MPV 8.4 Neutrophils % Lymphocytes % Monocytes % Eosinophils % Basophils % PT with INR INR Sodium 144 Potassium 4.0 Chloride 110 H Carbon Dioxide 29 Anion Gap 5 L BUN 11 D Creatinine 1.2 Creat Clearance w eGFR Random Glucose 95 Lactic Acid 2.0 Calcium 7.5 L Phosphorus 2.8 D Magnesium 2.0 D Total Bilirubin Direct Bilirubin AST ALT Alkaline Phosphatase Total Protein Albumin 03/14/18 03/14/18 06:10 12:10 WBC RBC Hgb Hct MCV MCH MCHC RDW Plt Count MPV Neutrophils % Lymphocytes % Monocytes % Eosinophils % Basophils % PT with INR 14.50 H INR 1.28 H Sodium Potassium Chloride Carbon Dioxide Anion Gap BUN Creatinine Creat Clearance w eGFR Random Glucose Lactic Acid Calcium Phosphorus Magnesium Total Bilirubin 3.7 H D Direct Bilirubin 2.4 H D AST 162 H D ALT 228 H Alkaline Phosphatase 141 H Total Protein 6.4 Albumin 2.8 L Active Medications Generic Name Dose Route Start Last Admin Trade Name Freq PRN Reason Stop Dose Admin Chlorhexidine Gluconate 1 applic 03/13/18 22:00 03/13/18 23:07 Hibiclens For Decolonization - TP 1 applic HS [facility] Administration Ceftriaxone Sodium 1 gm/ 50 mls @ 100 mls/hr 03/13/18 22:00 03/13/18 23:02 Dextrose IVPB 100 mls/hr DAILY@2200 [facility] Administration Protocol Metronidazole 500 mg in 100 mls @ 100 mls/hr 03/13/18 18:00 03/14/18 09:19 Flagyl 500mg Premixed Ivpb - IVPB 100 mls/hr Q8H-IV [facility] Administration Sodium Chloride 1,000 mls @ 100 mls/hr 03/13/18 17:28 03/14/18 05:46 Normal Saline - IV 100 mls/hr ASDIR [facility] Administration Insulin Aspart 1 vial 03/13/18 18:00 03/14/18 11:12 Novolog Vial Sliding Scale - SQ Not Given Q6HPO [facility] Protocol Morphine Sulfate 2 mg 03/13/18 17:28 Morphine Sulfate IVPUSH Q4H PRN PAIN LEVEL 4 - 6 Mupirocin 1 applic 03/13/18 22:00 03/14/18 10:26 Bactroban Ointment (For Decolonization) - NS 03/18/18 21:59 1 applic BID [facility] Administration Olanzapine 5 mg 03/14/18 10:00 03/14/18 10:33 Zyprexa - PO 5 mg DAILY [facility] Administration Ondansetron HCl 4 mg 03/13/18 17:28 Zofran Injection IVPB Q6H PRN NAUSEA Pantoprazole Sodium 40 mg 03/14/18 10:00 03/14/18 10:33 Protonix - PO 40 mg DAILY [facility] Administration Tamsulosin HCl 0.4 mg 03/14/18 08:30 03/14/18 10:32 Flomax - PO 0.4 mg DAILY@0830 [facility] Administration ASSESSMENT/PLAN: 77 year old LEP male who presented to ED yesterday (03/13) who RUQ pain. Sepsis 2/2 to cholangitis and CBD obstruction. 1. SEPSIS 2/2 to ASCENDING CHOLANGITIS with CBD STONE - Febrile (Tmax 102), tachycardic, intermittently tachypneic - possibly chronic - Elevated Bili, Alk phos, LFTs - ERCP showed obstructiing CBD stone - Continue empiric coverage with Ceftriaxone, Flagyll - IV Lactated Ringers in light of possibly pancreatic complications - ECRP later today (03/14) 2. H/O HTN - Admission BP range: 100's-130's/60's-80's - As per EMR on Losartan and HCTz @ home - Will continue to hold anti-hypertensives pending ERCP - Close BP monitoring 3. NIDDM - BS range 90's-150's - Target BS < 180 - SSI as indicated FEN - Monitor electrolytes - NPO pending ERCP then diabetic diet Visit type - Emergency Visit Emergency Visit: No - New Patient This patient is new to me today: Yes Date on this admission: 03/14/18 - Critical Care Critical Care patient: No
[2018-03-14] MEDS ORDERED: LACTATED RINGERS SOLUTION 1,000 ML/1,000 ML INFUS.BAG IV STA (13:28)
--- NOTE | 2018-03-14 13:31 | PN ---
Physical Exam: SUBJECTIVE: Pt only speaks Sami and translation assisted by Dr. Michaels. No events overnight noted. Pt currently denies any abdominal pain, nausea, vomiting , fever, and chills at this time. Pt currently has flat affect and difficult to obtain HPI due to not wanting to talk. OBJECTIVE: Vital Signs Period Temp Pulse Resp BP Sys/Bui Pulse Ox Last 24 Hr 97.9 F-101.6 F 63-80 16-24 92-114/52-70 95-98 GENERAL: NAD, awake, alert, laying in bed HEENT: EOMI, ROSALIE, sclera slightly icteric?, moist mucosa LUNGS: CTA bilaterally, no wheezes, no crackles, no accessory muscle use. HEART: RRR, S1, S2 without murmur ABDOMEN: Soft, NT/ND, normoactive bowel sounds, no guarding, no rebound, no hepatomegaly EXTREMITIES: 2+ DP pulses, warm, no edema. SKIN: Warm, dry, no rashes noted Laboratory Results - last 24 hr 03/13/18 03/13/18 03/13/18 07:50 16:00 16:00 WBC 9.2 RBC 4.29 Hgb 12.5 Hct 37.8 MCV 88.2 MCH 29.1 MCHC 33.0 RDW 14.1 Plt Count 134 MPV 8.4 Neutrophils % 88.8 H Lymphocytes % 6.6 L Monocytes % 4.1 D Eosinophils % 0.3 Basophils % 0.2 PT with INR INR Sodium 140 146 H Potassium 4.9 4.2 Chloride 104 110 H Carbon Dioxide 22 28 D Anion Gap 14 8 BUN 16 14 Creatinine 1.4 H 1.2 Creat Clearance w eGFR 58.56 Random Glucose 152 H 105 D Lactic Acid Calcium 8.9 7.8 L Phosphorus Magnesium Total Bilirubin 2.1 H D 2.9 H D Direct Bilirubin 0.8 H AST 413 H D 255 H D ALT 319 H D 274 H Alkaline Phosphatase 180 H D 155 H Total Protein 7.6 6.3 L Albumin 3.3 L 2.8 L 03/13/18 03/14/18 03/14/18 16:00 06:10 06:10 WBC 6.4 D RBC 4.20 Hgb 12.5 Hct 37.3 MCV 88.8 MCH 29.7 MCHC 33.4 RDW 14.5 Plt Count 106 L D MPV 8.4 Neutrophils % Lymphocytes % Monocytes % Eosinophils % Basophils % PT with INR INR Sodium 144 Potassium 4.0 Chloride 110 H Carbon Dioxide 29 Anion Gap 5 L BUN 11 D Creatinine 1.2 Creat Clearance w eGFR Random Glucose 95 Lactic Acid 2.0 Calcium 7.5 L Phosphorus 2.8 D Magnesium 2.0 D Total Bilirubin Direct Bilirubin AST ALT Alkaline Phosphatase Total Protein Albumin 03/14/18 03/14/18 06:10 12:10 WBC RBC Hgb Hct MCV MCH MCHC RDW Plt Count MPV Neutrophils % Lymphocytes % Monocytes % Eosinophils % Basophils % PT with INR 14.50 H INR 1.28 H Sodium Potassium Chloride Carbon Dioxide Anion Gap BUN Creatinine Creat Clearance w eGFR Random Glucose Lactic Acid Calcium Phosphorus Magnesium Total Bilirubin 3.7 H D Direct Bilirubin 2.4 H D AST 162 H D ALT 228 H Alkaline Phosphatase 141 H Total Protein 6.4 Albumin 2.8 L Active Medications Generic Name Dose Route Start Last Admin Trade Name Freq PRN Reason Stop Dose Admin Chlorhexidine Gluconate 1 applic 03/13/18 22:00 03/13/18 23:07 Hibiclens For Decolonization - TP 1 applic HS [facility] Administration Ceftriaxone Sodium 1 gm/ 50 mls @ 100 mls/hr 03/13/18 22:00 03/13/18 23:02 Dextrose IVPB 100 mls/hr DAILY@2200 [facility] Administration Protocol Metronidazole 500 mg in 100 mls @ 100 mls/hr 03/13/18 18:00 03/14/18 09:19 Flagyl 500mg Premixed Ivpb - IVPB 100 mls/hr Q8H-IV [facility] Administration Sodium Chloride 1,000 mls @ 100 mls/hr 03/13/18 17:28 03/14/18 05:46 Normal Saline - IV 100 mls/hr ASDIR [facility] Administration Lactated Ringer's 1,000 ml in 1,000 mls @ 1,000 mls/hr 03/14/18 13:28 Lactated Ringers Solution IV 03/14/18 14:27 ONCE STA Insulin Aspart 1 vial 03/13/18 18:00 03/14/18 11:12 Novolog Vial Sliding Scale - SQ Not Given Q6HPO [facility] Protocol Morphine Sulfate 2 mg 03/13/18 17:28 Morphine Sulfate IVPUSH Q4H PRN PAIN LEVEL 4 - 6 Mupirocin 1 applic 03/13/18 22:00 03/14/18 10:26 Bactroban Ointment (For Decolonization) - NS 03/18/18 21:59 1 applic BID [facility] Administration Olanzapine 5 mg 03/14/18 10:00 03/14/18 10:33 Zyprexa - PO 5 mg DAILY [facility] Administration Ondansetron HCl 4 mg 03/13/18 17:28 Zofran Injection IVPB Q6H PRN NAUSEA Pantoprazole Sodium 40 mg 03/14/18 10:00 03/14/18 10:33 Protonix - PO 40 mg DAILY [facility] Administration Tamsulosin HCl 0.4 mg 03/14/18 08:30 03/14/18 10:32 Flomax - PO 0.4 mg DAILY@0830 [facility] Administration ASSESSMENT/PLAN: 1) Severe sepsis 2/2 to ascending cholangitis 2/2 to choledocholithiasis --ERCP today with Dr. Ruiz for possible stone extraction vs. possible stent placement --Pt cannot receive sphincterotomy due to previously taking plavix within the past 8 days --Continue Rocephin 1 gm qdaily and Flagyl 500mg BID IVPB day 2 --NPO currently for procedure --Continue [id number] --Pain control with 2mg q4h IVP PRN for post-procedure pain --Zofran 4mg q6h IVPB for nausea 2) HTN --Currently hypotensive and holding home antihypertensives 3) H/o DM --ISS and BGM ACHS 4) H/o depression --Continue Zyprexa 5mg po qdaily FEN Fluids: NS@100cc/hr Electrolyte abnormalities: None today Nutrition: NPO for procedure PPX: DVT - SCDs GI - Protonix 40mg IVP qdaily Dispo: ERCP today Case discussed with Dr. Mihir Diaz, DO - IM PGY-1 Visit type - Emergency Visit Emergency Visit: No - New Patient This patient is new to me today: No - Critical Care Critical Care patient: Yes Total Critical Care Time (in minutes): 35 Critical Care Statement: The care of this patient involved high complexity decision making to prevent further life threatening deterioration of the patient 's condition and/or to evaluate & treat vital organ system(s) failure or risk of failure.
--- NOTE | 2018-03-14 14:22 | PN ---
Progress Note (short form) - Note Progress Note: GI Preprocedure NOte: Using a [place] intepreter on the [employer] # [id number] discussed Mr. Barrios's condition with him and the need for ERCP to extract the stone or to place a stent. I informed him of the potential for such complications as perforation, hemorrhage and multiorgan failure that can occur with ERCP induced pancreatitis. I informed him that complications occur in 5-15% . Dr Castro also discussed the need for general anesthesia. Mr Barrios has granted consent for GET and for the ERCP. I also called his son and shared all of this information with him including the risks. He supports his father's decision. Our Faroese speaking residents have confirmed that Mr Barrios is competent to make this decisions. I will proceed with ERCP.
[2018-03-14] MEDS ORDERED: IOHEXOL 300 MG/ML INFUS..BTL IV ONE (14:50)
[2018-03-14] MEDS ORDERED: LACTATED RINGERS SOLUTION 1,000 ML/1,000 ML INFUS.BAG IV SCH ×3 (15:45→21:45)
--- NOTE | 2018-03-14 15:49 | PN ---
Progress Note (short form) - Note Progress Note: GI Procedure NOte: Please see scanned ERCP report. 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 A stones was seen in the distal CBD so after a balloon sphincteroplasty was done a 7Fr x 5cm double pigtail stent was inserted. Purulent bile was seen to be emanating from the stent. I discussed the results with Jerome's son Marie who will relay them to nany and his mother. Case was discussed with the residents and with Dr Flores. Given the challenge of an intradiverticular papilla the sphincterotomy after interruption of Plavix would best be undertaken at a tertiary care center.
--- NOTE | 2018-03-14 17:45 | PN ---
Progress Note (short form) - Note Progress Note: pt complain of chest pain 3-4 /10 med sternal local non radiating , not related to position , last 5 min , not associated with palpitation or SOB. chest pain likely due to irritation from the scope S/P ERCP vs bloating from the gases from the procedure . but will r/p acute I due to previous history. cardiac profile cxr and EKG was ordered pain has subsided will give morphine 2 mg iv once continue to monitor in ICU vitals Vital Signs Period Temp Pulse Resp BP Sys/Bui Pulse Ox Last 24 Hr 98.2 F-101.6 F 63-89 16-24 92-114/53-70 93-98 PE: Head NC/AT Neck: supple , no JVD lungs CTA B/L heart: RRR, S1. S2 , no MRG Abdomen : doft , ND, NT , Normal BS , Legs: no edema neuro: no focal deficit , AAOx3 psych : apathic , depressed mood Skin: warm and dry EKG : NSR with no St, T wave changes , QTC 430, will follow trop....0.03 no need to repeat
[2018-03-14] MEDS ORDERED: DEXTROSE 5%-WATER - 50 ML IVPB ONE (20:26)
[2018-03-14] MEDS ORDERED: cefTRIAXone SODIUM 1 GM VIAL ONE (20:26)
[2018-03-14] MEDS: CEFTRIAXONE 1 GM in DEXTROSE 5%-WATER - 50 ML IVPB SCH (21:23)
[2018-03-14] MEDS: CHLORHEXIDINE GLUCONATE 4% CLEANSER FOR DECOLONIZATION TP SCH (21:24)
[2018-03-15] MEDS: INSULIN SLIDING SCALE (NOVOLOG) 1 VIAL SQ SCH ×4 (00:04→17:01)
[2018-03-15] MEDS ORDERED: LACTATED RINGERS SOLUTION 1,000 ML/1,000 ML INFUS.BAG IV SCH ×2 (03:45→08:00)
[2018-03-15 06:06] LABS: BASO % 0.4 % (0-2.0); EOS % 3.6 % (0-4.5); HEMATOCRIT 33.8 % (35.4-49); HEMOGLOBIN 11.5 GM/dL (11.7-16.9); LYMPH % 16.9 % (8-40); MCH 29.8 pg (25.7-33.7); MEAN CELL VOLUME 87.8 fl (80-96); MEAN PLT VOLUME 8.5 fl (7.5-11.1); MONO % 8.2 % (3.8-10.2); NEUT % 70.9 % (42.8-82.8); PLATELET COUNT 94 K/MM3 (134-434); RBC 3.85 M/mm3 (4.00-5.60); RDW 14.4 % (11.9-15.9); WHITE BLOOD COUNT 4.5 K/mm3 (4.0-10.0)
[2018-03-15 06:07] LABS: HEPATITIS B CORE ANTIBODY,IGM Negative (Negative)
[2018-03-15 06:33] LABS: ALBUMIN 2.5 g/dl (3.4-5.0); ALK PHOS 121 U/L (45-117); ANION GAP 4 (8-16); BILIRUBIN,DIRECT 0.7 mg/dL (0.0-0.2); BILIRUBIN,TOTAL 0.9 mg/dL (0.2-1.0); BLOOD UREA NITROGEN 8 mg/dL (7-18); CALCIUM 7.4 mg/dL (8.5-10.1); CHLORIDE 111 mmol/L (98-107); CO2 28 mmol/L (21-32); CREATININE 0.9 mg/dL (0.7-1.3); GLUCOSE,RANDOM 135 mg/dL (74-106); MAGNESIUM 1.5 mg/dL (1.8-2.4); PHOSPHOROUS 1.8 mg/dL (2.5-4.9); POTASSIUM 3.7 mmol/L (3.5-5.1); SGOT/AST 84 U/L (15-37); SGPT/ALT 153 U/L (12-78); SODIUM 143 mmol/L (136-145); TOT PROT 5.9 g/dl (6.4-8.2)
[2018-03-15] MEDS ORDERED: POTASSIUM PHOSPHATE 40 MM in SODIUM CHLORIDE 250 ML IVPB ONE ×2 (08:24→12:33)
--- NOTE | 2018-03-15 08:32 | PN ---
Teaching Attending Note Name of Resident: Pop Zavaleta ATTENDING PHYSICIAN STATEMENT I saw and evaluated the patient. I reviewed the resident's note and discussed the case with the resident. I agree with the resident's findings and plan as documented. SUBJECTIVE: minimal pain in RUQ. No fever or chills, no SOB or cough OBJECTIVE: NAD , MMM CV: RRR, no MRG Lungs: CTAB Ext: no edema Abd: soft, minimal tenderness in RUQ, no rebound tenderness or guarding , ND , nl BS. ASSESSMENT AND PLAN: 77 y/o man with h/o HTN, HLp, depression, and DM who presented with abd pain, N /V , and was found to have severe sepsis due to ascending cholangitis with obstructing CBD stone 1- Severe sepsis 2/2 ascending cholangitis with obstructing CBD stone. s/p ERCP with stent placement but no sphincterotomy was not done due to being on plavix and anatomical challenge. LFTS improved - Cont ceftriaxone and flagyl - likely can feed liquids today ( will d/w GI) - IVF - pain control if needed - cont to hold statin . follow hep panel 2- h/o HTN: - cont to hold anihypertensives 3- DM : SSI q 6h while NPO 4- hold plavix: unclear why on it . possible CAD . No h/o stents per his PCP DVT prophy;axis: will d/w GI if OK to place on heparin SQ after ERCP dispo : HLOC will discuss possible transfer for sphincterotomy Critical Care Total Critical Care Time (in minutes): 35 Critical Care Statement: The care of this patient involved high complexity decision making to prevent further life threatening deterioration of the patient 's condition and/or to evaluate & treat vital organ system(s) failure or risk of failure.
[2018-03-15] MEDS ORDERED: cefTRIAXone SODIUM 1 GM VIAL ONE ×2 (08:36→20:58)
[2018-03-15] MEDS ORDERED: DEXTROSE 5%-WATER - 50 ML IVPB ONE ×2 (08:36→20:58)
[2018-03-15] MEDS: MAGNESIUM SULF 50% (8.12 MEQ/2 ML-1 GM VIAL) IVPB SCH ×2 (08:43→10:13)
[2018-03-15] MEDS: TAMSULOSIN HCL 0.4 MG CAP.ER.24H (FP) PO SCH (08:45)
[2018-03-15] MEDS ORDERED: PT OWN MED DRAWER 7, Y5N ONE (08:52)
[2018-03-15] MEDS ORDERED: POTASSIUM PHOSPHATE 40 MM in SODIUM CHLORIDE 500 ML IVPB ONE (08:58)
[2018-03-15] MEDS: MUPIROCIN 2% TOPICAL OINTMENT FOR DECOLONIZATION NS SCH (08:59)
[2018-03-15] MEDS: PANTOPRAZOLE 40 MG TABLET (FP) PO SCH (09:00)
[2018-03-15] MEDS: OLANZapine 5 MG TABLET PO SCH (09:00)
--- NOTE | 2018-03-15 09:51 | PN ---
Physical Exam: SUBJECTIVE: Patient seen and examined OBJECTIVE: Vital Signs Period Temp Pulse Resp BP Sys/Bui Pulse Ox Last 24 Hr 98.2 F-99.8 F 64-89 16-28 94-126/53-77 93-98 GENERAL: The patient is awake, alert, and fully oriented, in no acute distress. HEAD: Normal with no signs of trauma. EYES: PERRL, extraocular movements intact, sclera anicteric, conjunctiva clear. No ptosis. ENT: Ears normal, nares patent, oropharynx clear without exudates, moist mucous membranes. NECK: Trachea midline, full range of motion, supple. LUNGS: Breath sounds equal, clear to auscultation bilaterally, no wheezes, no crackles, no accessory muscle use. HEART: Regular rate and rhythm, S1, S2 without murmur, rub or gallop. ABDOMEN: Soft, nontender, nondistended, normoactive bowel sounds, no guarding, no rebound, no hepatosplenomegaly, no masses. EXTREMITIES: 2+ pulses, warm, well-perfused, no edema. NEUROLOGICAL: Cranial nerves II through XII grossly intact. Normal speech, gait not observed. PSYCH: Normal mood, normal affect. SKIN: Warm, dry, normal turgor, no rashes or lesions noted Laboratory Results - last 24 hr 03/13/18 03/14/18 03/14/18 18:00 06:10 12:10 WBC RBC Hgb Hct MCV MCH MCHC RDW Plt Count MPV Neutrophils % Lymphocytes % Monocytes % Eosinophils % Basophils % PT with INR 14.50 H INR 1.28 H Sodium Potassium Chloride Carbon Dioxide Anion Gap BUN Creatinine Creat Clearance w eGFR Random Glucose Calcium Phosphorus Magnesium 2.0 D Total Bilirubin Direct Bilirubin AST ALT Alkaline Phosphatase Creatine Kinase Creatine Kinase Index CK-MB (CK-2) Troponin I Total Protein Albumin Hep Bs Antibody Reactive Hep B Core IgM Ab Negative 03/14/18 03/15/18 03/15/18 19:30 05:50 05:50 WBC 4.5 RBC 3.85 L Hgb 11.5 L Hct 33.8 L MCV 87.8 MCH 29.8 MCHC 34.0 RDW 14.4 Plt Count 94 L MPV 8.5 Neutrophils % 70.9 D Lymphocytes % 16.9 D Monocytes % 8.2 D Eosinophils % 3.6 D Basophils % 0.4 PT with INR INR Sodium 143 Potassium 3.7 Chloride 111 H Carbon Dioxide 28 Anion Gap 4 L BUN 8 D Creatinine 0.9 D Creat Clearance w eGFR > 60 Random Glucose 135 H D Calcium 7.4 L Phosphorus 1.8 L D Magnesium 1.5 L D Total Bilirubin 0.9 D Direct Bilirubin 0.7 H D AST 84 H D ALT 153 H D Alkaline Phosphatase 121 H Creatine Kinase 160 Creatine Kinase Index 0.8 CK-MB (CK-2) 1.409 Troponin I 0.03 D Total Protein 5.9 L Albumin 2.5 L Hep Bs Antibody Hep B Core IgM Ab Active Medications Generic Name Dose Route Start Last Admin Trade Name Freq PRN Reason Stop Dose Admin Chlorhexidine Gluconate 1 applic 03/13/18 22:00 03/14/18 21:24 Hibiclens For Decolonization - TP 1 applic HS [facility] Administration Ceftriaxone Sodium 1 gm/ 50 mls @ 100 mls/hr 03/13/18 22:00 03/14/18 21:23 Dextrose IVPB 100 mls/hr DAILY@2200 [facility] Administration Protocol Metronidazole 500 mg in 100 mls @ 100 mls/hr 03/13/18 18:00 03/15/18 09:00 Flagyl 500mg Premixed Ivpb - IVPB 100 mls/hr Q8H-IV [facility] Administration Lactated Ringer's 1,000 ml in 1,000 mls @ 75 mls/hr 03/15/18 08:00 03/15/18 08:44 Lactated Ringers Solution IV 75 mls/hr ASDIR [facility] Administration Potassium Phosphate 40 mm/ 513.3333 mls @ 85.556 mls/hr 03/15/18 08:58 Sodium Chloride IVPB 03/15/18 14:23 ONCE ONE Insulin Aspart 1 vial 03/13/18 18:00 03/15/18 06:21 Novolog Vial Sliding Scale - SQ Not Given Q6HPO [facility] Protocol Magnesium Sulfate 2 gm 03/15/18 08:30 03/15/18 08:43 Magnesium Sulfate IVPB 03/15/18 10:31 2 gm Q2H [facility] Administration Morphine Sulfate 2 mg 03/13/18 17:28 03/14/18 17:55 Morphine Sulfate IVPUSH 2 mg Q4H PRN Administration PAIN LEVEL 4 - 6 Mupirocin 1 applic 03/13/18 22:00 03/15/18 08:59 Bactroban Ointment (For Decolonization) - NS 03/18/18 21:59 1 applic BID [facility] Administration Olanzapine 5 mg 03/14/18 10:00 03/15/18 09:00 Zyprexa - PO 5 mg DAILY [facility] Administration Ondansetron HCl 4 mg 03/13/18 17:28 Zofran Injection IVPB Q6H PRN NAUSEA Pantoprazole Sodium 40 mg 03/14/18 10:00 03/15/18 09:00 Protonix - PO 40 mg DAILY [facility] Administration Tamsulosin HCl 0.4 mg 03/14/18 08:30 03/15/18 08:45 Flomax - PO 0.4 mg DAILY@0830 [facility] Administration ASSESSMENT/PLAN: 77M with multiple medical problems including gallstones presents to the ED with nausea, vomiting, and RUQ abdominal pain for one day, found to have elevated LFTs. Patient is now in severe sepsis with concern for ascending cholangitis. Severe sepsis secondary to ascending cholangitis/Choledocholithiasis/ Cholelithiasis: s/p ERCP with double pigtail stent with sphincteroplasty no sphincterotomy due to being on plavix: Sepsis improving continue ceftriaxone/flagyl day 3 f/u GI for advancing diet and further recommendations-start low fat diet pain control follow up hepatitis panel per Dr. Ruiz based on cultures whether they are positive or not will determine oral or IV Abx and duration. Will follow up as outpatient with montifiore for sphincterotomy Hyperbilirubinemia/Jaundice/transaminitis: improved No tylenol DM: Fingersticks for BGM q6h while NPO ISS q6h if starts diet will do TIDAC HTN: continue to hold for now Possible history of CAD: Patient and his family are unsure about his cardiac history or why the patient is on plavix. Per son patient was on all his meds from [facility] and [facility] doctor just continued everything. They state that he never had a stress test or cardiac catheterization but they are not completely sure. Hold plavix HLD: Hold lipitor 20mg po HS due to elevated LFTs Thrombocytopenia: Possible HIT vs sepsis will send HITAb no heparin BPH: continue flomax Depression: continue Zyprexa FEN: LR @75ml/hr hypophosphatemia, hypokalemia and hypomagnesemia: will replete with IV electrolytes NPO PPx: SCDs-hold HSQ for possibility of HIT will send HITAb Protonix PT consult to avoid deconditioning Visit type - Emergency Visit Emergency Visit: Yes ED Registration Date: 03/13/18 Care time: The patient presented to the Emergency Department on the above date and was hospitalized for further evaluation of their emergent condition. - New Patient This patient is new to me today: Yes Date on this admission: 03/15/18 - Critical Care Critical Care patient: Yes Total Critical Care Time (in minutes): 35 Critical Care Statement: The care of this patient involved high complexity decision making to prevent further life threatening deterioration of the patient 's condition and/or to evaluate & treat vital organ system(s) failure or risk of failure.
--- NOTE | 2018-03-15 10:07 | PN ---
Progress Note (short form) - Note Progress Note: POD #1 - s/p ERCP under [facility]. VSS. Pt. dong well, resting comfortably in bed. No apparent anesthetic complications noted. Continue current care.
--- NOTE | 2018-03-15 11:38 | PN ---
Progress Note, Physician History of Present Illness: No events overnight. Pain-free. Tmax 99.8. Liver chemistry, bili, ALP improving. - Current Medication List Current Medications: Active Medications Chlorhexidine Gluconate (Hibiclens For Decolonization -) 1 applic TP HS [facility] Last Admin: 03/14/18 21:24 Dose: 1 applic Ceftriaxone Sodium 1 gm/ (Dextrose) 50 mls @ 100 mls/hr IVPB DAILY@2200 [facility] PRN Reason: Protocol Last Admin: 03/14/18 21:23 Dose: 100 mls/hr Metronidazole (Flagyl 500mg Premixed Ivpb -) 500 mg in 100 mls @ 100 mls/hr IVPB Q8H-IV [facility] Last Admin: 03/15/18 09:00 Dose: 100 mls/hr Lactated Ringer's (Lactated Ringers Solution) 1,000 ml in 1,000 mls @ 75 mls/ hr IV ASDIR [facility] Last Admin: 03/15/18 08:44 Dose: 75 mls/hr Potassium Phosphate 40 mm/ (Sodium Chloride) 513.3333 mls @ 85.556 mls/hr IVPB ONCE ONE Stop: 03/15/18 14:23 Last Admin: 03/15/18 11:05 Dose: 85.556 mls/hr Insulin Aspart (Novolog Vial Sliding Scale -) 1 vial SQ Q6HPO [facility] PRN Reason: Protocol Last Admin: 03/15/18 11:06 Dose: Not Given Morphine Sulfate (Morphine Sulfate) 2 mg IVPUSH Q4H PRN PRN Reason: PAIN LEVEL 4 - 6 Last Admin: 03/14/18 17:55 Dose: 2 mg Mupirocin (Bactroban Ointment (For Decolonization) -) 1 applic NS BID [facility] Stop: 03/18/18 21:59 Last Admin: 03/15/18 08:59 Dose: 1 applic Olanzapine (Zyprexa -) 5 mg PO DAILY [facility] Last Admin: 03/15/18 09:00 Dose: 5 mg Ondansetron HCl (Zofran Injection) 4 mg IVPB Q6H PRN PRN Reason: NAUSEA Pantoprazole Sodium (Protonix -) 40 mg PO DAILY [facility] Last Admin: 03/15/18 09:00 Dose: 40 mg Tamsulosin HCl (Flomax -) 0.4 mg PO DAILY@0830 [facility] Last Admin: 03/15/18 08:45 Dose: 0.4 mg - Objective Vital Signs: Vital Signs Temperature 99.2 F 03/15/18 09:05 Pulse Rate 70 03/15/18 11:04 Respiratory Rate 24 03/15/18 11:04 Blood Pressure 131/74 03/15/18 11:04 O2 Sat by Pulse Oximetry (%) 98 03/15/18 08:10 Constitutional: Yes: No Distress, Calm Eyes: Yes: Conjunctiva Clear HENT: Yes: Atraumatic Neck: Yes: Supple Cardiovascular: No: Bradycardia, Tachycardia Respiratory: Yes: Regular Gastrointestinal: Yes: Normal Bowel Sounds, Soft. No: Tenderness, Vomiting Neurological: Yes: Alert Labs: CBC, BMP 03/15/18 05:50 03/15/18 05:50 INR, PTT INR 1.28 (0.82-1.09) H 03/14/18 12:10 Laboratory Last Values WBC 4.5 K/mm3 (4.0-10.0) 03/15/18 05:50 RBC 3.85 M/mm3 (4.00-5.60) L 03/15/18 05:50 Hgb 11.5 GM/dL (11.7-16.9) L 03/15/18 05:50 Hct 33.8 % (35.4-49) L 03/15/18 05:50 MCV 87.8 fl (80-96) 03/15/18 05:50 MCH 29.8 pg (25.7-33.7) 03/15/18 05:50 MCHC 34.0 g/dl (32.0-35.9) 03/15/18 05:50 RDW 14.4 % (11.9-15.9) 03/15/18 05:50 Plt Count 94 K/MM3 (134-434) L 03/15/18 05:50 MPV 8.5 fl (7.5-11.1) 03/15/18 05:50 Neutrophils % 70.9 % (42.8-82.8) D 03/15/18 05:50 Lymphocytes % 16.9 % (8-40) D 03/15/18 05:50 Monocytes % 8.2 % (3.8-10.2) D 03/15/18 05:50 Eosinophils % 3.6 % (0-4.5) D 03/15/18 05:50 Basophils % 0.4 % (0-2.0) 03/15/18 05:50 Platelet Estimate Adequate 03/13/18 02:14 Platelet Comment No clumping noted 03/13/18 02:14 PT with INR 14.50 SEC (9.7-13.0) H 03/14/18 12:10 INR 1.28 (0.82-1.09) H 03/14/18 12:10 Sodium 143 mmol/L (136-145) 03/15/18 05:50 Potassium 3.7 mmol/L (3.5-5.1) 03/15/18 05:50 Chloride 111 mmol/L (98-107) H 03/15/18 05:50 Carbon Dioxide 28 mmol/L (21-32) 03/15/18 05:50 Anion Gap 4 (8-16) L 03/15/18 05:50 BUN 8 mg/dL (7-18) D 03/15/18 05:50 Creatinine 0.9 mg/dL (0.7-1.3) D 03/15/18 05:50 Creat Clearance w eGFR > 60 (>60) 03/15/18 05:50 POC Glucometer 131 UNITS (80-120) 03/13/18 11:56 Random Glucose 135 mg/dL (74-106) H D 03/15/18 05:50 Lactic Acid 2.0 mmol/L (0.0-2.0) 03/13/18 16:00 Calcium 7.4 mg/dL (8.5-10.1) L 03/15/18 05:50 Phosphorus 1.8 mg/dL (2.5-4.9) L D 03/15/18 05:50 Magnesium 1.5 mg/dL (1.8-2.4) L D 03/15/18 05:50 Total Bilirubin 0.9 mg/dL (0.2-1.0) D 03/15/18 05:50 Direct Bilirubin 0.7 mg/dL (0.0-0.2) H D 03/15/18 05:50 AST 84 U/L (15-37) H D 03/15/18 05:50 ALT 153 U/L (12-78) H D 03/15/18 05:50 Alkaline Phosphatase 121 U/L (45-117) H 03/15/18 05:50 Creatine Kinase 160 IU/L (39-308) 03/14/18 19:30 Creatine Kinase Index 0.8 % (0.0-5.0) 03/14/18 19:30 CK-MB (CK-2) 1.409 ng/mL (0.5-3.6) 03/14/18 19:30 Troponin I 0.03 ng/ml (0.00-0.05) D 03/14/18 19:30 B-Natriuretic Peptide 81.37 pg/ml (5-450) 03/13/18 02:14 Total Protein 5.9 g/dl (6.4-8.2) L 03/15/18 05:50 Albumin 2.5 g/dl (3.4-5.0) L 03/15/18 05:50 Lipase 301 U/L (73-393) 03/13/18 02:14 Urine Color Yellow 03/13/18 05:01 Urine Appearance Clear 03/13/18 05:01 Urine pH 5.0 (5.0-8.0) 03/13/18 05:01 Ur Specific [place] 1.019 (1.001-1.035) 03/13/18 05:01 Urine Protein Negative (NEGATIVE) 03/13/18 05:01 Urine Glucose (UA) Negative (NEGATIVE) 03/13/18 05:01 Urine Ketones Negative (NEGATIVE) 03/13/18 05:01 Urine Blood Negative (NEGATIVE) 03/13/18 05:01 Urine Nitrite Negative (NEGATIVE) 03/13/18 05:01 Urine Bilirubin Negative (<2.0 mg/dL) 03/13/18 05:01 Urine Urobilinogen 4.0 e.u/dl mg/dL (0.2-1.0) 03/13/18 05:01 Ur Leukocyte Esterase Negative (NEGATIVE) 03/13/18 05:01 Acetone, Qual Negative (NEGATIVE) 03/13/18 02:14 Hep Bs Antibody Reactive (.) 03/13/18 18:00 Hep B Core IgM Ab Negative (Negative) 03/13/18 18:00 Problem List - Problems (1) Cholestasis Code(s): K83.1 - OBSTRUCTION OF BILE DUCT (2) Hepatitis Code(s): K75.9 - INFLAMMATORY LIVER DISEASE, UNSPECIFIED (3) Abdominal pain Code(s): R10.9 - UNSPECIFIED ABDOMINAL PAIN Assessment/Plan Start low fat diet and observe. CBC, CMP in am. Schedule ERCP with Dr. Roc Oviedo @ [facility] for definite treatment followed by Cholesytectomy.
--- NOTE | 2018-03-15 11:52 | PN ---
Progress Note (short form) - Note Progress Note: PULMONARY/CCM Pt seen and examined in the ICU. Denies abdominal pain, nausea or vomiting. Last Vital Signs Temp Pulse Resp BP Pulse Ox 99.2 F 70 24 131/74 98 03/15/18 09:05 03/15/18 11:04 03/15/18 11:04 03/15/18 11:04 03/15/18 08:10 Intake & Output 03/12/18 03/13/18 03/14/18 03/15/18 23:59 23:59 23:59 23:59 Intake Total 2900 3062.5 1781.2 Output Total 1100 1050 700 Balance 1800 2012.5 1081.2 Weight 95 kg 95.527 kg 96.388 kg Gen: NAD at rest Heart: RRR Lung: decreased breath sounds at the bases Abd: soft, nontender Ext: no edema CBC, BMP 03/15/18 05:50 03/15/18 05:50 Hepatic Panel Total Bilirubin 0.9 mg/dL (0.2-1.0) D 03/15/18 05:50 Direct Bilirubin 0.7 mg/dL (0.0-0.2) H D 03/15/18 05:50 AST 84 U/L (15-37) H D 03/15/18 05:50 ALT 153 U/L (12-78) H D 03/15/18 05:50 Alkaline Phosphatase 121 U/L (45-117) H 03/15/18 05:50 Albumin 2.5 g/dl (3.4-5.0) L 03/15/18 05:50 Active Medications Chlorhexidine Gluconate (Hibiclens For Decolonization -) 1 applic TP HS [facility] Last Admin: 03/14/18 21:24 Dose: 1 applic Ceftriaxone Sodium 1 gm/ (Dextrose) 50 mls @ 100 mls/hr IVPB DAILY@2200 [facility] PRN Reason: Protocol Last Admin: 03/14/18 21:23 Dose: 100 mls/hr Metronidazole (Flagyl 500mg Premixed Ivpb -) 500 mg in 100 mls @ 100 mls/hr IVPB Q8H-IV [facility] Last Admin: 03/15/18 09:00 Dose: 100 mls/hr Lactated Ringer's (Lactated Ringers Solution) 1,000 ml in 1,000 mls @ 75 mls/ hr IV ASDIR [facility] Last Admin: 03/15/18 08:44 Dose: 75 mls/hr Potassium Phosphate 40 mm/ (Sodium Chloride) 513.3333 mls @ 85.556 mls/hr IVPB ONCE ONE Stop: 03/15/18 14:23 Last Admin: 03/15/18 11:05 Dose: 85.556 mls/hr Insulin Aspart (Novolog Vial Sliding Scale -) 1 vial SQ Q6HPO [facility] PRN Reason: Protocol Last Admin: 03/15/18 11:06 Dose: Not Given Morphine Sulfate (Morphine Sulfate) 2 mg IVPUSH Q4H PRN PRN Reason: PAIN LEVEL 4 - 6 Last Admin: 03/14/18 17:55 Dose: 2 mg Mupirocin (Bactroban Ointment (For Decolonization) -) 1 applic NS BID [facility] Stop: 03/18/18 21:59 Last Admin: 03/15/18 08:59 Dose: 1 applic Olanzapine (Zyprexa -) 5 mg PO DAILY [facility] Last Admin: 03/15/18 09:00 Dose: 5 mg Ondansetron HCl (Zofran Injection) 4 mg IVPB Q6H PRN PRN Reason: NAUSEA Pantoprazole Sodium (Protonix -) 40 mg PO DAILY [facility] Last Admin: 03/15/18 09:00 Dose: 40 mg Tamsulosin HCl (Flomax -) 0.4 mg PO DAILY@0830 [facility] Last Admin: 03/15/18 08:45 Dose: 0.4 mg A/P Acute Cholangitis s/p ERCP/stent placement Sepsis improved Lactic Acidosis improved Acute Kidney Injury improving Thrombocytopenia Elevated LFTs from above HTN Hyperlipidemia CAD - continue antibiotics - f/u cultures - IVF - monitor urine output, creatinine - PO per GI - monitor LFTs - can transfer to floor
[2018-03-15] MEDS ORDERED: ONDANSETRON 4 MG/2 ML VIAL IVPB PRN (12:33)
[2018-03-15] MEDS ORDERED: morphine SULFATE 4 MG/ML VIAL IVPUSH PRN (12:33)
[2018-03-15] MEDS: LACTATED RINGERS SOLUTION 1,000 ML/1,000 ML INFUS.BAG IV SCH (13:57)
--- NOTE | 2018-03-15 19:47 | PN ---
Progress Note (short form) - Note Progress Note: S/P ERCP with stent placement Pain improved Discussed with Dr Ruiz and family Will need a subsequent ERCP with stone extraction/sphincterotomy- recommended to be done at a tertiary center Should have cholecystectomy at that same center once follow up ERCP performed Vital Signs Period Temp Pulse Resp BP Sys/Biu Pulse Ox Last 24 Hr 98.7 F-99.8 F 64-80 16-28 94-131/55-78 98-98 Abd soft, no rebound CBC,CMP WBC 4.5 K/mm3 (4.0-10.0) 03/15/18 05:50 RBC 3.85 M/mm3 (4.00-5.60) L 03/15/18 05:50 Hgb 11.5 GM/dL (11.7-16.9) L 03/15/18 05:50 Hct 33.8 % (35.4-49) L 03/15/18 05:50 MCV 87.8 fl (80-96) 03/15/18 05:50 MCH 29.8 pg (25.7-33.7) 03/15/18 05:50 MCHC 34.0 g/dl (32.0-35.9) 03/15/18 05:50 RDW 14.4 % (11.9-15.9) 03/15/18 05:50 Plt Count 94 K/MM3 (134-434) L 03/15/18 05:50 MPV 8.5 fl (7.5-11.1) 03/15/18 05:50 Neutrophils % 70.9 % (42.8-82.8) D 03/15/18 05:50 Lymphocytes % 16.9 % (8-40) D 03/15/18 05:50 Monocytes % 8.2 % (3.8-10.2) D 03/15/18 05:50 Eosinophils % 3.6 % (0-4.5) D 03/15/18 05:50 Basophils % 0.4 % (0-2.0) 03/15/18 05:50 Platelet Estimate Adequate 03/13/18 02:14 Platelet Comment No clumping noted 03/13/18 02:14 Sodium 143 mmol/L (136-145) 03/15/18 05:50 Potassium 3.7 mmol/L (3.5-5.1) 03/15/18 05:50 Chloride 111 mmol/L (98-107) H 03/15/18 05:50 Carbon Dioxide 28 mmol/L (21-32) 03/15/18 05:50 Anion Gap 4 (8-16) L 03/15/18 05:50 BUN 8 mg/dL (7-18) D 03/15/18 05:50 Creatinine 0.9 mg/dL (0.7-1.3) D 03/15/18 05:50 Creat Clearance w eGFR > 60 (>60) 03/15/18 05:50 POC Glucometer 123 UNITS (80-120) 03/15/18 16:57 Random Glucose 135 mg/dL (74-106) H D 03/15/18 05:50 Lactic Acid 2.0 mmol/L (0.0-2.0) 03/13/18 16:00 Calcium 7.4 mg/dL (8.5-10.1) L 03/15/18 05:50 Phosphorus 1.8 mg/dL (2.5-4.9) L D 03/15/18 05:50 Magnesium 1.5 mg/dL (1.8-2.4) L D 03/15/18 05:50 Total Bilirubin 0.9 mg/dL (0.2-1.0) D 03/15/18 05:50 Direct Bilirubin 0.7 mg/dL (0.0-0.2) H D 03/15/18 05:50 AST 84 U/L (15-37) H D 03/15/18 05:50 ALT 153 U/L (12-78) H D 03/15/18 05:50 Alkaline Phosphatase 121 U/L (45-117) H 03/15/18 05:50 Creatine Kinase 160 IU/L (39-308) 03/14/18 19:30 Creatine Kinase Index 0.8 % (0.0-5.0) 03/14/18 19:30 CK-MB (CK-2) 1.409 ng/mL (0.5-3.6) 03/14/18 19:30 Troponin I 0.03 ng/ml (0.00-0.05) D 03/14/18 19:30 B-Natriuretic Peptide 81.37 pg/ml (5-450) 03/13/18 02:14 Total Protein 5.9 g/dl (6.4-8.2) L 03/15/18 05:50 Albumin 2.5 g/dl (3.4-5.0) L 03/15/18 05:50 Lipase 301 U/L (73-393) 03/13/18 02:14 Repeat ERCP and cholecystectomy at tertiary [facility] Antibiotics Problem List - Problems (1) Abdominal pain Code(s): R10.9 - UNSPECIFIED ABDOMINAL PAIN (2) Choledocholithiasis Code(s): K80.50 - CALCULUS OF BILE DUCT W/O CHOLANGITIS OR CHOLECYST W/O OBST
[2018-03-15] MEDS: CEFTRIAXONE 1 GM in DEXTROSE 5%-WATER - 50 ML IVPB SCH (22:41)
[2018-03-16] MEDS: INSULIN SLIDING SCALE (NOVOLOG) 1 VIAL SQ SCH ×3 (06:28→16:54)
[2018-03-16 08:10] LABS: HEMATOCRIT 35.9 % (35.4-49); HEMOGLOBIN 12.1 GM/dL (11.7-16.9); MCH 29.3 pg (25.7-33.7); MCHC 33.6 g/dl (32.0-35.9); MEAN CELL VOLUME 87.4 fl (80-96); PLATELET COUNT 133 K/MM3 (134-434); RBC 4.11 M/mm3 (4.00-5.60); RDW 14.3 % (11.9-15.9); WHITE BLOOD COUNT 4.3 K/mm3 (4.0-10.0)
[2018-03-16 08:23] LABS: CHLORIDE 111 mmol/L (98-107); POTASSIUM 4.1 mmol/L (3.5-5.1); SODIUM 145 mmol/L (136-145)
[2018-03-16 08:26] LABS: ALBUMIN 2.4 g/dl (3.4-5.0); ALK PHOS 118 U/L (45-117); ANION GAP 5 (8-16); BILIRUBIN,TOTAL 0.7 mg/dL (0.2-1.0); BLOOD UREA NITROGEN 7 mg/dL (7-18); CO2 29 mmol/L (21-32); CREATININE 0.8 mg/dL (0.7-1.3); GLUCOSE,RANDOM 110 mg/dL (74-106); MAGNESIUM 1.8 mg/dL (1.8-2.4); PHOSPHOROUS 2.8 mg/dL (2.5-4.9); SGOT/AST 44 U/L (15-37); SGPT/ALT 109 U/L (12-78); TOT PROT 5.9 g/dl (6.4-8.2)
[2018-03-16] MEDS: LACTATED RINGERS SOLUTION 1,000 ML/1,000 ML INFUS.BAG IV SCH (08:52)
[2018-03-16] MEDS: TAMSULOSIN HCL 0.4 MG CAP.ER.24H (FP) PO SCH (08:53)
[2018-03-16] MEDS: PANTOPRAZOLE 40 MG TABLET (FP) PO SCH (09:17)
[2018-03-16] MEDS: OLANZapine 5 MG TABLET PO SCH (09:17)
--- NOTE | 2018-03-16 13:48 | PN ---
Progress Note, Physician History of Present Illness: No events overnight. Pain-free. Tmax 99.2. Liver chemistry, bili, ALP normalized - Current Medication List Current Medications: Active Medications Ceftriaxone Sodium 1 gm/ (Dextrose) 50 mls @ 100 mls/hr IVPB DAILY@2200 [facility] PRN Reason: Protocol Last Admin: 03/15/18 22:41 Dose: 100 mls/hr Metronidazole (Flagyl 500mg Premixed Ivpb -) 500 mg in 100 mls @ 100 mls/hr IVPB Q8H-IV [facility] Last Admin: 03/16/18 09:16 Dose: 100 mls/hr Insulin Aspart (Novolog Vial Sliding Scale -) 1 vial SQ TIDAC [facility] PRN Reason: Protocol Last Admin: 03/16/18 12:07 Dose: Not Given Morphine Sulfate (Morphine Sulfate) 2 mg IVPUSH Q4H PRN PRN Reason: PAIN LEVEL 4 - 6 Olanzapine (Zyprexa -) 5 mg PO DAILY [facility] Last Admin: 03/16/18 09:17 Dose: 5 mg Ondansetron HCl (Zofran Injection) 4 mg IVPB Q6H PRN PRN Reason: NAUSEA Pantoprazole Sodium (Protonix -) 40 mg PO DAILY [facility] Last Admin: 03/16/18 09:17 Dose: 40 mg Tamsulosin HCl (Flomax -) 0.4 mg PO DAILY@0830 [facility] Last Admin: 03/16/18 08:53 Dose: 0.4 mg - Objective Vital Signs: Vital Signs Temperature 98.9 F 03/16/18 09:46 Pulse Rate 76 03/16/18 09:46 Respiratory Rate 20 03/16/18 09:46 Blood Pressure 127/76 03/16/18 09:46 O2 Sat by Pulse Oximetry (%) 98 03/15/18 21:00 Constitutional: Yes: Well Nourished, No Distress, Calm Eyes: Yes: Conjunctiva Clear HENT: Yes: Atraumatic Neck: Yes: Supple Cardiovascular: Yes: Regular Rate and Rhythm Respiratory: Yes: Regular Gastrointestinal: Yes: Normal Bowel Sounds, Soft Neurological: Yes: Alert Labs: CBC, BMP 03/16/18 06:00 03/16/18 06:00 INR, PTT INR 1.28 (0.82-1.09) H 03/14/18 12:10 Laboratory Last Values WBC 4.3 K/mm3 (4.0-10.0) 03/16/18 06:00 RBC 4.11 M/mm3 (4.00-5.60) 03/16/18 06:00 Hgb 12.1 GM/dL (11.7-16.9) 03/16/18 06:00 Hct 35.9 % (35.4-49) 03/16/18 06:00 MCV 87.4 fl (80-96) 03/16/18 06:00 MCH 29.3 pg (25.7-33.7) 03/16/18 06:00 MCHC 33.6 g/dl (32.0-35.9) 03/16/18 06:00 RDW 14.3 % (11.9-15.9) 03/16/18 06:00 Plt Count 133 K/MM3 (134-434) L D 03/16/18 06:00 MPV 9.0 fl (7.5-11.1) 03/16/18 06:00 Neutrophils % 70.9 % (42.8-82.8) D 03/15/18 05:50 Lymphocytes % 16.9 % (8-40) D 03/15/18 05:50 Monocytes % 8.2 % (3.8-10.2) D 03/15/18 05:50 Eosinophils % 3.6 % (0-4.5) D 03/15/18 05:50 Basophils % 0.4 % (0-2.0) 03/15/18 05:50 Platelet Estimate Adequate 03/13/18 02:14 Platelet Comment No clumping noted 03/13/18 02:14 PT with INR 14.50 SEC (9.7-13.0) H 03/14/18 12:10 INR 1.28 (0.82-1.09) H 03/14/18 12:10 Sodium 145 mmol/L (136-145) 03/16/18 06:00 Potassium 4.1 mmol/L (3.5-5.1) 03/16/18 06:00 Chloride 111 mmol/L (98-107) H 03/16/18 06:00 Carbon Dioxide 29 mmol/L (21-32) 03/16/18 06:00 Anion Gap 5 (8-16) L 03/16/18 06:00 BUN 7 mg/dL (7-18) 03/16/18 06:00 Creatinine 0.8 mg/dL (0.7-1.3) 03/16/18 06:00 Creat Clearance w eGFR > 60 (>60) 03/16/18 06:00 POC Glucometer 144 UNITS (80-120) 03/16/18 11:58 Random Glucose 110 mg/dL (74-106) H 03/16/18 06:00 Lactic Acid 2.0 mmol/L (0.0-2.0) 03/13/18 16:00 Calcium 8.0 mg/dL (8.5-10.1) L 03/16/18 06:00 Phosphorus 2.8 mg/dL (2.5-4.9) D 03/16/18 06:00 Magnesium 1.8 mg/dL (1.8-2.4) 03/16/18 06:00 Total Bilirubin 0.7 mg/dL (0.2-1.0) D 03/16/18 06:00 Direct Bilirubin 0.7 mg/dL (0.0-0.2) H D 03/15/18 05:50 AST 44 U/L (15-37) H D 03/16/18 06:00 ALT 109 U/L (12-78) H D 03/16/18 06:00 Alkaline Phosphatase 118 U/L (45-117) H 03/16/18 06:00 Creatine Kinase 160 IU/L (39-308) 03/14/18 19:30 Creatine Kinase Index 0.8 % (0.0-5.0) 03/14/18 19:30 CK-MB (CK-2) 1.409 ng/mL (0.5-3.6) 03/14/18 19:30 Troponin I 0.03 ng/ml (0.00-0.05) D 03/14/18 19:30 B-Natriuretic Peptide 81.37 pg/ml (5-450) 03/13/18 02:14 Total Protein 5.9 g/dl (6.4-8.2) L 03/16/18 06:00 Albumin 2.4 g/dl (3.4-5.0) L 03/16/18 06:00 Lipase 301 U/L (73-393) 03/13/18 02:14 Urine Color Yellow 03/13/18 05:01 Urine Appearance Clear 03/13/18 05:01 Urine pH 5.0 (5.0-8.0) 03/13/18 05:01 Ur Specific [place] 1.019 (1.001-1.035) 03/13/18 05:01 Urine Protein Negative (NEGATIVE) 03/13/18 05:01 Urine Glucose (UA) Negative (NEGATIVE) 03/13/18 05:01 Urine Ketones Negative (NEGATIVE) 03/13/18 05:01 Urine Blood Negative (NEGATIVE) 03/13/18 05:01 Urine Nitrite Negative (NEGATIVE) 03/13/18 05:01 Urine Bilirubin Negative (<2.0 mg/dL) 03/13/18 05:01 Urine Urobilinogen 4.0 e.u/dl mg/dL (0.2-1.0) 03/13/18 05:01 Ur Leukocyte Esterase Negative (NEGATIVE) 03/13/18 05:01 Acetone, Qual Negative (NEGATIVE) 03/13/18 02:14 REJI Screen Negative (.) 03/14/18 06:10 Hep Bs Antibody Reactive (.) 03/13/18 18:00 Hep B Core IgM Ab Negative (Negative) 03/13/18 18:00 Problem List - Problems (1) Cholestasis Code(s): K83.1 - OBSTRUCTION OF BILE DUCT (2) Hepatitis Code(s): K75.9 - INFLAMMATORY LIVER DISEASE, UNSPECIFIED (3) Abdominal pain Code(s): R10.9 - UNSPECIFIED ABDOMINAL PAIN Assessment/Plan Start low fat diet and observe. CBC, CMP in am. Schedule ERCP with Dr. Roc Oviedo @ [facility] for definite treatment followed by Cholesytectomy.
--- NOTE | 2018-03-16 15:51 | PN ---
Progress Note (short form) - Note Progress Note: Subjective: No fever or chills. no abd pain . Objective: Vital Signs: Last Vital Signs Temp Pulse Resp BP Pulse Ox 98.9 F 76 20 127/76 98 03/16/18 09:46 03/16/18 09:46 03/16/18 09:46 03/16/18 09:46 03/16/18 09:00 Laboratory Results - last 24 hr 03/14/18 03/15/18 03/16/18 06:10 16:57 06:00 WBC 4.3 RBC 4.11 Hgb 12.1 Hct 35.9 MCV 87.4 MCH 29.3 MCHC 33.6 RDW 14.3 Plt Count 133 L D MPV 9.0 Sodium Potassium Chloride Carbon Dioxide Anion Gap BUN Creatinine Creat Clearance w eGFR POC Glucometer 123 Random Glucose Calcium Phosphorus Magnesium Total Bilirubin AST ALT Alkaline Phosphatase Total Protein Albumin REJI Screen Negative 03/16/18 03/16/18 03/16/18 06:00 06:25 11:58 WBC RBC Hgb Hct MCV MCH MCHC RDW Plt Count MPV Sodium 145 Potassium 4.1 Chloride 111 H Carbon Dioxide 29 Anion Gap 5 L BUN 7 Creatinine 0.8 Creat Clearance w eGFR > 60 POC Glucometer 97 144 Random Glucose 110 H Calcium 8.0 L Phosphorus 2.8 D Magnesium 1.8 Total Bilirubin 0.7 D AST 44 H D ALT 109 H D Alkaline Phosphatase 118 H Total Protein 5.9 L Albumin 2.4 L REJI Screen Physical Exam: NAD , MMM CV: RRR, no MRG Lungs: crackles at bases Ext: no edema Abd: soft,NT , ND , nl BS. ASSESSMENT AND PLAN: 77 y/o man with h/o HTN, HLp, depression, and DM who presented with abd pain, N /V , and was found to have severe sepsis due to ascending cholangitis with obstructing CBD stone 1- Severe sepsis 2/2 ascending cholangitis with obstructing CBD stone. s/p ERCP with stent placement but no sphincterotomy was not done due to being on plavix and anatomical challenge. LFTS cont to improve - Cont ceftriaxone and flagyl - low fat diet - Dc IVF as crackles in lungs are heard today - cont to hold statin . follow hep panel - plan for stone extraction, sphincterotomy and Cholecystectomy as out p t. will try to arrange an appointment before dc - contot hold plavix for procedure 2- h/o HTN: - resume losartan -hold HCTZ 3- DM : SSI TIDAC 4- hold plavix: unclear why on it . possible CAD . No h/o stents per his PCP 5- thrombocytopenia: likely due to sepsis. Unlikely HIT .now recovering DVT prophylaxis: will start SQ heparin if safe from GI stand point Possible dc tomorrow Visit type - Emergency Visit Emergency Visit: Yes ED Registration Date: 03/13/18 Care time: The patient presented to the Emergency Department on the above date and was hospitalized for further evaluation of their emergent condition. - New Patient This patient is new to me today: No - Critical Care Critical Care patient: No
[2018-03-16] MEDS ORDERED: IBUPROFEN 400 MG TABLET (FP) PO ONE (16:15)
[2018-03-16] MEDS ORDERED: DEXTROSE 5%-WATER - 50 ML IVPB ONE (20:44)
[2018-03-16] MEDS ORDERED: cefTRIAXone SODIUM 1 GM VIAL ONE (20:44)
[2018-03-16] MEDS: CEFTRIAXONE 1 GM in DEXTROSE 5%-WATER - 50 ML IVPB SCH (22:41)
[2018-03-16] MEDS: HEPARIN NA (PORCINE) 5,000 UNITS/ML 1ML VIAL SQ SCH (22:41)
[2018-03-17] MEDS: HEPARIN NA (PORCINE) 5,000 UNITS/ML 1ML VIAL SQ SCH ×2 (05:53→15:15)
[2018-03-17] MEDS: INSULIN SLIDING SCALE (NOVOLOG) 1 VIAL SQ SCH ×3 (06:04→17:12)
[2018-03-17 07:52] LABS: HEMATOCRIT 37.9 % (35.4-49); HEMOGLOBIN 12.7 GM/dL (11.7-16.9); MCH 29.6 pg (25.7-33.7); MCHC 33.6 g/dl (32.0-35.9); MEAN CELL VOLUME 88.1 fl (80-96); MEAN PLT VOLUME 9.3 fl (7.5-11.1); PLATELET COUNT 140 K/MM3 (134-434); RDW 14.5 % (11.9-15.9); WHITE BLOOD COUNT 6.3 K/mm3 (4.0-10.0)
[2018-03-17 08:30] LABS: ALBUMIN 2.5 g/dl (3.4-5.0); BILIRUBIN,DIRECT 0.2 mg/dL (0.0-0.2); BILIRUBIN,TOTAL 0.6 mg/dL (0.2-1.0); TOT PROT 6.1 g/dl (6.4-8.2)
--- NOTE | 2018-03-17 09:02 | PN ---
Progress Note, Physician History of Present Illness: No events overnight. - Current Medication List Current Medications: Active Medications Heparin Sodium (Porcine) (Heparin -) 5,000 unit SQ TID [facility] Last Admin: 03/17/18 05:53 Dose: 5,000 unit Ceftriaxone Sodium 1 gm/ (Dextrose) 50 mls @ 100 mls/hr IVPB DAILY@2200 [facility] PRN Reason: Protocol Last Admin: 03/16/18 22:41 Dose: 100 mls/hr Metronidazole (Flagyl 500mg Premixed Ivpb -) 500 mg in 100 mls @ 100 mls/hr IVPB Q8H-IV [facility] Last Admin: 03/17/18 01:21 Dose: 100 mls/hr Insulin Aspart (Novolog Vial Sliding Scale -) 1 vial SQ TIDAC [facility] PRN Reason: Protocol Last Admin: 03/17/18 06:04 Dose: Not Given Olanzapine (Zyprexa -) 5 mg PO DAILY [facility] Last Admin: 03/16/18 09:17 Dose: 5 mg Ondansetron HCl (Zofran Injection) 4 mg IVPB Q6H PRN PRN Reason: NAUSEA Pantoprazole Sodium (Protonix -) 40 mg PO DAILY [facility] Last Admin: 03/16/18 09:17 Dose: 40 mg Tamsulosin HCl (Flomax -) 0.4 mg PO DAILY@0830 [facility] Last Admin: 03/16/18 08:53 Dose: 0.4 mg - Objective Vital Signs: Vital Signs Temperature 97.8 F 03/17/18 05:00 Pulse Rate 61 03/17/18 05:00 Respiratory Rate 18 03/17/18 05:00 Blood Pressure 133/78 03/17/18 05:00 O2 Sat by Pulse Oximetry (%) 97 03/16/18 21:00 Constitutional: Yes: Well Nourished, No Distress, Calm Gastrointestinal: Yes: Normal Bowel Sounds, Soft. No: Tenderness, Tenderness, Rebound, Vomiting Labs: CBC, BMP 03/17/18 06:40 03/16/18 06:00 INR, PTT INR 1.28 (0.82-1.09) H 03/14/18 12:10 Laboratory Last Values WBC 6.3 K/mm3 (4.0-10.0) D 03/17/18 06:40 RBC 4.30 M/mm3 (4.00-5.60) 03/17/18 06:40 Hgb 12.7 GM/dL (11.7-16.9) 03/17/18 06:40 Hct 37.9 % (35.4-49) 03/17/18 06:40 MCV 88.1 fl (80-96) 03/17/18 06:40 MCH 29.6 pg (25.7-33.7) 03/17/18 06:40 MCHC 33.6 g/dl (32.0-35.9) 03/17/18 06:40 RDW 14.5 % (11.9-15.9) 03/17/18 06:40 Plt Count 133 K/MM3 (134-434) L D 03/16/18 06:00 MPV 9.0 fl (7.5-11.1) 03/16/18 06:00 Neutrophils % 70.9 % (42.8-82.8) D 03/15/18 05:50 Lymphocytes % 16.9 % (8-40) D 03/15/18 05:50 Monocytes % 8.2 % (3.8-10.2) D 03/15/18 05:50 Eosinophils % 3.6 % (0-4.5) D 03/15/18 05:50 Basophils % 0.4 % (0-2.0) 03/15/18 05:50 Platelet Estimate Adequate 03/13/18 02:14 Platelet Comment No clumping noted 03/13/18 02:14 PT with INR 14.50 SEC (9.7-13.0) H 03/14/18 12:10 INR 1.28 (0.82-1.09) H 03/14/18 12:10 Sodium 145 mmol/L (136-145) 03/16/18 06:00 Potassium 4.1 mmol/L (3.5-5.1) 03/16/18 06:00 Chloride 111 mmol/L (98-107) H 03/16/18 06:00 Carbon Dioxide 29 mmol/L (21-32) 03/16/18 06:00 Anion Gap 5 (8-16) L 03/16/18 06:00 BUN 7 mg/dL (7-18) 03/16/18 06:00 Creatinine 0.8 mg/dL (0.7-1.3) 03/16/18 06:00 Creat Clearance w eGFR > 60 (>60) 03/16/18 06:00 POC Glucometer 99 UNITS (80-120) 03/17/18 05:52 Random Glucose 110 mg/dL (74-106) H 03/16/18 06:00 Lactic Acid 2.0 mmol/L (0.0-2.0) 03/13/18 16:00 Calcium 8.0 mg/dL (8.5-10.1) L 03/16/18 06:00 Phosphorus 2.8 mg/dL (2.5-4.9) D 03/16/18 06:00 Magnesium 1.8 mg/dL (1.8-2.4) 03/16/18 06:00 Total Bilirubin 0.6 mg/dL (0.2-1.0) 03/17/18 06:40 Direct Bilirubin 0.2 mg/dL (0.0-0.2) D 03/17/18 06:40 AST 35 U/L (15-37) D 03/17/18 06:40 ALT 81 U/L (12-78) H D 03/17/18 06:40 Alkaline Phosphatase 116 U/L (45-117) 03/17/18 06:40 Creatine Kinase 160 IU/L (39-308) 03/14/18 19:30 Creatine Kinase Index 0.8 % (0.0-5.0) 03/14/18 19:30 CK-MB (CK-2) 1.409 ng/mL (0.5-3.6) 03/14/18 19:30 Troponin I 0.03 ng/ml (0.00-0.05) D 03/14/18 19:30 B-Natriuretic Peptide 81.37 pg/ml (5-450) 03/13/18 02:14 Total Protein 6.1 g/dl (6.4-8.2) L 03/17/18 06:40 Albumin 2.5 g/dl (3.4-5.0) L 03/17/18 06:40 Lipase 301 U/L (73-393) 03/13/18 02:14 Urine Color Yellow 03/13/18 05:01 Urine Appearance Clear 03/13/18 05:01 Urine pH 5.0 (5.0-8.0) 03/13/18 05:01 Ur Specific [place] 1.019 (1.001-1.035) 03/13/18 05:01 Urine Protein Negative (NEGATIVE) 03/13/18 05:01 Urine Glucose (UA) Negative (NEGATIVE) 03/13/18 05:01 Urine Ketones Negative (NEGATIVE) 03/13/18 05:01 Urine Blood Negative (NEGATIVE) 03/13/18 05:01 Urine Nitrite Negative (NEGATIVE) 03/13/18 05:01 Urine Bilirubin Negative (<2.0 mg/dL) 03/13/18 05:01 Urine Urobilinogen 4.0 e.u/dl mg/dL (0.2-1.0) 03/13/18 05:01 Ur Leukocyte Esterase Negative (NEGATIVE) 03/13/18 05:01 Acetone, Qual Negative (NEGATIVE) 03/13/18 02:14 REJI Screen Negative (.) 03/14/18 06:10 Hep Bs Antibody Reactive (.) 03/13/18 18:00 Hep B Core IgM Ab Negative (Negative) 03/13/18 18:00 Problem List - Problems (1) Cholestasis Code(s): K83.1 - OBSTRUCTION OF BILE DUCT (2) Hepatitis Code(s): K75.9 - INFLAMMATORY LIVER DISEASE, UNSPECIFIED (3) Abdominal pain Code(s): R10.9 - UNSPECIFIED ABDOMINAL PAIN Assessment/Plan Transfer to [facility] for definite treatment of choledocolithiasis.
[2018-03-17] MEDS: TAMSULOSIN HCL 0.4 MG CAP.ER.24H (FP) PO SCH (09:43)
[2018-03-17] MEDS: PANTOPRAZOLE 40 MG TABLET (FP) PO SCH (09:43)
[2018-03-17] MEDS ORDERED: PT OWN MED DRAWER 7, Y5N ONE (09:44)
[2018-03-17] MEDS: OLANZapine 5 MG TABLET PO SCH (09:45)
--- NOTE | 2018-03-17 10:47 | PN ---
Progress Note (short form) - Note Progress Note: PULMONARY/CCM Denies abdominal pain, nausea or vomiting. c/o headache. Last Vital Signs Temp Pulse Resp BP Pulse Ox 98 F 73 18 126/70 97 03/17/18 09:00 03/17/18 09:00 03/17/18 09:00 03/17/18 09:00 03/16/18 21:00 Gen: NAD at rest Heart: RRR Lung: decreased breath sounds at the bases Abd: soft, nontender Ext: no edema CBC, BMP 03/17/18 06:40 03/16/18 06:00 Active Medications Acetaminophen (Tylenol -) 650 mg PO Q4H PRN PRN Reason: PAIN Heparin Sodium (Porcine) (Heparin -) 5,000 unit SQ TID [facility] Last Admin: 03/17/18 05:53 Dose: 5,000 unit Ceftriaxone Sodium 1 gm/ (Dextrose) 50 mls @ 100 mls/hr IVPB DAILY@2200 [facility] PRN Reason: Protocol Last Admin: 03/16/18 22:41 Dose: 100 mls/hr Metronidazole (Flagyl 500mg Premixed Ivpb -) 500 mg in 100 mls @ 100 mls/hr IVPB Q8H-IV [facility] Last Admin: 03/17/18 09:43 Dose: 100 mls/hr Ibuprofen (Motrin -) 400 mg PO ONCE ONE Stop: 03/17/18 11:16 Insulin Aspart (Novolog Vial Sliding Scale -) 1 vial SQ TIDAC [facility] PRN Reason: Protocol Last Admin: 03/17/18 06:04 Dose: Not Given Olanzapine (Zyprexa -) 5 mg PO DAILY [facility] Last Admin: 03/17/18 09:45 Dose: 5 mg Ondansetron HCl (Zofran Injection) 4 mg IVPB Q6H PRN PRN Reason: NAUSEA Pantoprazole Sodium (Protonix -) 40 mg PO DAILY [facility] Last Admin: 03/17/18 09:43 Dose: 40 mg Tamsulosin HCl (Flomax -) 0.4 mg PO DAILY@0830 [facility] Last Admin: 03/17/18 09:43 Dose: 0.4 mg A/P Acute Cholangitis Choledocholithiasis s/p ERCP/stent placement Sepsis improved Lactic Acidosis improved Acute Kidney Injury improving Thrombocytopenia Elevated LFTs from above HTN Hyperlipidemia CAD - continue antibiotics - monitor urine output, creatinine - PO per GI - monitor LFTs - for transfer to [facility]
[2018-03-17] MEDS ORDERED: IBUPROFEN 400 MG TABLET (FP) PO ONE (11:15)
[2018-03-17] MEDS ORDERED: ACETAMINOPHEN 325 MG TABLET (FP) PO PRN (11:50)
--- NOTE | 2018-03-17 11:55 | DS ---
Physical Exam: SUBJECTIVE: Pt reports a BM yesterday. Denies any abdominal pain, fever/chills, CP/discomfort, shortness of breath. Pt's HPI obtained using Dr. Michaels as buyer liaison. Pt also wishes for us to speak to son. OBJECTIVE: Vital Signs Period Temp Pulse Resp BP Sys/Bui Pulse Ox Last 24 Hr 97.4 F-98.6 F 56-73 18-18 125-133/70-78 97 PHYSICAL EXAM GENERAL: NAD, awake, alert HEENT: EOMI, ROSALIE, sclera anicteric, moist mucosa LUNGS: Minimal crackles bibasillary, no wheezes, no accessory muscle use. HEART: RRR, S1, S2 without murmur ABDOMEN: Soft, NT/ND, obese, normoactive BS, no guarding, no masses appreciated including hepatomegaly. Midline scar noted C/D/I without drainage EXTREMITIES: 2+ DP pulses, well-perfused, trace ankle edema. NEUROLOGICAL: CN II through XII grossly intact. Strength 5/5 grossly intact. Sensation intact grossly. Normal speech. gait not observed. PSYCH: Normal mood, Flat affect. SKIN: Warm, dry, no rashes or lesions noted. LABS Laboratory Results - last 24 hr 03/16/18 03/16/18 03/16/18 11:58 16:52 22:31 WBC RBC Hgb Hct MCV MCH MCHC RDW Plt Count MPV Platelet Comment POC Glucometer 144 133 163 Total Bilirubin Direct Bilirubin AST ALT Alkaline Phosphatase Total Protein Albumin 03/17/18 03/17/18 03/17/18 05:52 06:40 06:40 WBC 6.3 D RBC 4.30 Hgb 12.7 Hct 37.9 MCV 88.1 MCH 29.6 MCHC 33.6 RDW 14.5 Plt Count 140 MPV 9.3 Platelet Comment No clumping noted POC Glucometer 99 Total Bilirubin 0.6 Direct Bilirubin 0.2 D AST 35 D ALT 81 H D Alkaline Phosphatase 116 Total Protein 6.1 L Albumin 2.5 L Microbiology 03/13/18 10:10 Blood - Peripheral Venous Blood Culture - Preliminary NO GROWTH OBTAINED AFTER 96 HOURS, INCUBATION TO CONTINUE FOR 1 DAYS. 03/13/18 09:50 Blood - Peripheral Venous Blood Culture - Preliminary NO GROWTH OBTAINED AFTER 96 HOURS, INCUBATION TO CONTINUE FOR 1 DAYS. 03/14/18 10:30 Urine - Urine Clean Catch Urine Culture - Final NO GROWTH OBTAINED HOSPITAL COURSE: Date of Admission:03/13/18 Date of Discharge: 03/17/18 77M Chinese-speaking male from [facility] with history of GERD and BPH who presented initially on 03/13/18 due to nausea, nonbilious/nonbloody vomiting, chills, and retrosternal chest pain alongside of some abdominal pain found to have ascending cholangitis 2/2 to choledocholithiasis with elevated liver function tests. Pt was started on IV Rocephin 1gm and IV Flagyl 500mg BID for his infection and had a CTAP that was not conclusive due to motion artifact found. Gastroenterology and general surgery was contacted at this point and recommended MRCP/ERCP to be done. Pt was admitted to the ICU and maintained on his IV antibiotics whilst having his statin and antihypertensives held due to hypotension down to 96/64 on admission. Pt was maintained NPO and continued to have his plavix held. Pt went to ERCP the next day by Dr. Ruiz who could only perform a stent placement due to recent use of plavix and a duodenal diverticulum. When stent was placed, pt had bile and a moderate amount of purulence drain from the ampulla of Vater. Over the weekend of 03/15-03/17 pt began to improve, however it was recommended to have an ERCP performed for gallstone extraction with possible sphincterotomy at a tertiary care center due to anatomical variance found. Currently, pt is being arranged for transfer to under Dr. Oviedo who is willing to accept pt. Pt is currently stable and agrees to transfer without abdominal pain at this point. General surgery has recommended a cholecystectomy once pt is stable and had choledocholithiasis and ascending cholangitis resolved. Additional labwork: Hepatitis panels pending Pt's LAST DOSE OF PLAVIX was 03/12/18 Additional Imagin/17 CXR: Large heart, prominent aortic knob, normal alon with atlectatic changes in lingula and L/R bases 03/13 CTAP w/o oral and IV contrast: Motion artifacts moderately limiting; limited evaluation of GB wall 03/13 Echocardiogram: LV size, thickness, and function normal. RV size and function normal. Trace TR noted 03/13 RUQ US: Small gallstones and possible small sludge layering posterioly. borderline thickening of GV wall w/o evidence of pericholecystic fluid. Mild fatty infiltraiton of liver 03/13 MRCP: Evidence of cholelithiasis and choledocholithiasis with MRI findings of cholecystitis with mild CBD dilation and peridcutal edema suspicious for cholangitis. Pancreatic duct 3-4mm. CBD dilated to 8mm. 03/14 CXR: No change from prior 03/13/1803/14 Endoscopy report: --Major papilla located inside diverticulum at an angle projective away from lumen. Single stone seen distal CBD. Balloon sphincteroplasty performed using TTS-balloon inflated up to 8mm. Position of papilla made stone extraction w/o spincterotomy challenging. 7Fr x 5cm double pigtail plastic stent placed in the CBD with draining bile noted. Minutes to complete discharge: 40 Discharge Summary Reason For Visit: COMMON BILE DUCT CALCULUS Current Active Problems Abdominal pain (Acute) Ascending cholangitis (Acute) Choledocholithiasis (Acute) Condition: Stable - Instructions Diet, Activity, Other Instructions: You were seen here for an infection and obstruction in your bile ducts. You are being transferred to [facility] to have a second procedure because your stone needs to be taken out. MEDICATIONS: The medication regiment you have been on during your hospital day is Flagyl 500mg and Rocephin 1gm daily for your 3rd day. You have not taken the Plavix since you were admitted here (03/13/18) due to the risk of bleeding that would have occurred from your procedures. We also stopped your cholesterol medication: Lipitor due to its effect on your liver and we also stopped your blood pressure medication HCTZ due to its effect on your kidneys and volume status. Those might be resumes after your condition stabilizes FOLLOW-UP: When you go to [facility], you should follow their discharge instructions I will let your son know where you are going and talk to him about everything going on per your wishes. I have given you Dr. Flores's and Dr. Delgado information to follow-up with, however if you prefer to follow-up with [facility]'s recommended physicians this is okay. --Your hepatitis labs are still pending and Dr. Flores will be able to have access to them because these should be followed up with. - sitagliptin/metformin can be resumed when you are discharged form [facility] Referrals: Benji Flores MD [Staff Physician] - Carlos Enrique Delgado MD [Staff Physician] - Disposition: TRANSFER ACUTE CARE/OTHER HOSP - Home Medications Comprehensive Discharge Medication List: Ambulatory Orders Losartan Potassium [Cozaar -] 25 mg PO DAILY 03/13/18 Olanzapine [Zyprexa -] 5 mg PO DAILY 03/13/18 Tamsulosin HCl [Flomax -] 0.4 mg PO DAILY 03/13/18 Acetaminophen [Tylenol .Regular Strength -] 650 mg PO Q4H PRN tablet 03/17/18 Ceftriaxone [Rocephin -] 1 gm IVPB DAILY@2200 vial 03/17/18 Heparin - 5,000 unit SQ TID vial 03/17/18 Insulin Sliding Scale [Novolog Vial Sliding Scale -] 1 vial SQ TIDAC units Pantoprazole Sodium [Protonix -] 40 mg PO DAILY tablet.ec 03/17/18 This patient is new to me today: No Emergency Visit: No Critical Care patient: No - Discharge Referral Referred to [facility] No
--- NOTE | 2018-03-17 14:06 | PN ---
Teaching Attending Note Name of Resident: Frank Diaz ATTENDING PHYSICIAN STATEMENT I saw and evaluated the patient. I reviewed the resident's note and discussed the case with the resident. I agree with the resident's findings and plan as documented. SUBJECTIVE: No fever or chills. no abd pain. no N/V . feels tired OBJECTIVE: NAD , MMM CV: RRR, no MRG Lungs: crackles at bases Ext: no edema Abd: soft, NT, ND , nl BS. ASSESSMENT AND PLAN: 77 y/o man with h/o HTN, HLp, depression, and DM who presented with abd pain, N /V , and was found to have severe sepsis due to ascending cholangitis with obstructing CBD stone 1- Severe sepsis 2/2 ascending cholangitis with obstructing CBD stone. s/p ERCP with stent placement but no sphincterotomy was not done due to being on plavix and anatomical challenge. LFTS cont to improve - Cont ceftriaxone and flagyl - low fat diet - Dc IVF as crackles in lungs are heard today - cont to hold statin. follow hep panel - plan for stone extraction, sphincterotomy and Cholecystectomy at [facility] - cont to hold plavix for procedure ( last use on 03/12/18) 2- H/o HTN: -cont losartan -cont to hold HCTZ at dc, can resume after all issues are resolved 3- DM: SSI TIDAC 4- hold plavix: unclear why on it . possible CAD . 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 Jh Oviedo
[2018-03-17 17:55] VITALS: BP 132/80; PULSE 66; TEMP 98.4
--- NOTE | 2018-03-18 00:41 | EKG ---
Test Reason : Blood Pressure : / mmHG Vent. Rate : 069 BPM Atrial Rate : 069 BPM P-R Int : 138 ms QRS Dur : 090 ms QT Int : 402 ms P-R-T Axes : 053 011 016 degrees QTc Int : 430 ms NORMAL SINUS RHYTHM NORMAL ECG WHEN COMPARED WITH ECG OF 13-MAR-2018 01:53, VENT. RATE HAS DECREASED BY 35 BPM Confirmed by MCKAY JALLOH MD ([id number]) on 03/18/2018 12:41:11 AM Referred By: Confirmed By:MCKAY JALLOH MD
[2018-03-18 06:06] LABS: HEP.C VIRUS AB 0.2 s/co ratio (0.0-0.9)
[2018-03-19 00:06] LABS: HBSAG SCREEN Negative (Negative); HEP A AB, IGM Negative (Negative); HEP B CORE AB, TOT Negative (Negative)
== END 2018-03-17 19:06 | disposition short-term general hospital (02) | DRG 710 ==
LOC: JER 01:14 → JERBED 06:47 → UNDOADMOB 06:56 → OBSVTOIN 08:21 → J6S 09:04 → JICU 17:48 → J7W 03-15 15:00
PROVIDERS: ADMIT Internal Medicine; ATTEND Internal Medicine
PROC: 0FQC8ZZ Repair Ampulla of Vater, Via Natural or Artificial Opening Endoscopic (ICD-10-PCS; 2018-03-14)
PROC: 0F798DZ Dilation of Common Bile Duct with Intraluminal Device, Via Natural or Artificial Opening Endoscopic (ICD-10-PCS; principal; 2018-03-14 15:00)
DX: A41.9 Sepsis, unspecified organism (principal); E87.2 Acidosis; R07.89 Other chest pain; E78.5 Hyperlipidemia, unspecified; N40.0 Benign prostatic hyperplasia without lower urinary tract symptoms; F32.9 Major depressive disorder, single episode, unspecified; E83.39 Other disorders of phosphorus metabolism; E83.42 Hypomagnesemia; I10 Essential (primary) hypertension; E11.9 Type 2 diabetes mellitus without complications; D69.6 Thrombocytopenia, unspecified; K80.71 Calculus of gallbladder and bile duct without cholecystitis with obstruction; K80.33 Calculus of bile duct with acute cholangitis with obstruction; N17.9 Acute kidney failure, unspecified; I25.10 Atherosclerotic heart disease of native coronary artery without angina pectoris; K75.9 Inflammatory liver disease, unspecified; K83.1 Obstruction of bile duct; R10.9 Unspecified abdominal pain; R74.0 Nonspecific elevation of levels of transaminase and lactic acid dehydrogenase [LDH]; E87.6 Hypokalemia
CPT/HCPCS: 36415; 71045-TC-FY; 74176-TC; 74181-TC; 76000-TC-FY; 76705-TC; 80048; 80053; 80074; 80076; 81003; 82009; 82248; 82550; 82553; 82962; 83605; 83690; 83735; 83880; 84100; 84484; 85025; 85027; 85610; 86022; 86038; 86704; 86705; 86706; 86708; 87040; 87086; 87340; 93005; 93010; 93306-TC; 97116-GP; 97161-GP; 99283-25; G0378; J1644; J7030